=== PATIENT | male | born 1960 | race Caucasian/White ===

== ENCOUNTER 2018-11-15 08:37 | Inpatient (IN) | payer OTHER ==
[2018-11-15 09:52] VITALS: BMI 23.1
--- NOTE | 2018-11-15 10:30 | HP ---
COWS - Scale Resting Pulse: 0= [place] 80 or Below Sweatin= Chills/Flushing Restless Observation: 3= Extraneous Movement Pupil Size: 2= Moderately Dilated Bone or Joint Aches: 2= Severe Diffuse Aches Runny Nose/ Eye Tearin= Constantly Teary/Runny GI Upset > 30mins: 5=Frequent Vomit/Diarrhea Tremor Observation: 2= Slight Tremor Visible Yawning Observation: 2= >3x During Session Anxiety or Irritability: 2=Irritable/Anxious Goose Flesh Skin: 3=Piloerection COWS Score: 26 CIWA Score - Admission Criteria [facility] Guidelines: Admission for Medically Managed Detox: Requires at least one of the followin. CIWA greater than 12 2. Seizures within the past 24 hours 3. Delirium tremens within the past 24 hours 4. Hallucinations within the past 24 hours 5. Acute intervention needed for co occurring medical disorder 6. Acute intervention needed for co occurring psychiatric disorder 7. Severe withdrawal that cannot be handled at a lower level of care (continued vomiting, continued diarrhea, abnormal vital signs) requiring intravenous medication and/or fluids 8. Admission ROS [facility] - [facility] Chief Complaint: " I had a in the family so I relapsed." Allergies/Adverse Reactions: Allergies Allergy/AdvReac Type Severity Reaction Status Date / Time No Known Allergies Allergy Verified 11/15/18 09:45 History of Present Illness: 57 year old male with history of opioid dependence. He was abstinent from 2013 till 2016 when a in the family caused him to relapse. His girlfriend and he fell apart. Patient is now using 1 gm of heroin per day, last used this morning. Patient is also using 1 gm of cocaine per day, last used this morning. Patient denies seizures. He had a blackout from drug use 2 months ago. Patient smokes ciggarettes 1 PPD for 15 years. Patient denies use of other illicit drugs: marijuana, K2, metamphetamine, etc. Patient has no pending legal issues. Patient domiciled. He has family but not supportive. PMH: HCV PsychHx: Depression PsurgHx: Fracture left foot - Ebola screening Have you traveled outside of the country in the last 21 days: No Have you had contact with anyone from an Ebola affected area: No Patient History - Patient Medical History Hx Asthma: No Hx Chronic Obstructive Pulmonary Disease (COPD): No Hx Cardiac Disorders: No Hx Hypertension: No Hx Seizures: No Hx Diabetes: No Hx Gastrointestinal Disorders: No Hx Genitourinary Disorders: No Hx Sexually Transmitted Disorders: No Hx Renal Disease (ESRD): No Hx Human Immunodeficiency Virus (HIV): No Hx Hepatitis C: Yes Hx Depression: Yes - Patient Surgical History Past Surgical History: Yes Hx Orthopedic Surgery: Yes (FRACTURED LEFT FOOT BONES IN 2011) - PPD History Previous Implant?: Yes Documented Results: Negative w/proof Implanted On Prior R Admission?: Yes Date: 09/11/13 PPD to be Administered?: No - Reproductive History Patient is a Female of Child Bearing Age (11 -55 yrs old): No - Smoking Cessation Smoking history: Former smoker Have you smoked in the past 12 months: No Aproximately how many cigarettes per day: 20 If you are a former smoker, when did you quit?: 7 YRS, AGO Hx Chewing Tobacco Use: No Initiated information on smoking cessation: No - Substance & Tx. History Hx Alcohol Use: No Hx Substance Use: Yes Substance Use Type: Cocaine, Heroin Hx Substance Use Treatment: Yes (detox in 2013) - Substances abused Cocaine Substance route: Injection Frequency: Daily Amount used: 1 GRAM Age of first use: 18 Date of last use: 11/15/18 Heroin Substance route: Injection Frequency: Daily Amount used: 1 GRAM Age of first use: 18 Date of last use: 11/15/18 Family Disease History - Family Disease History Family Disease History: Heart Disease: Mother (multiple medical problems), Other : Father ( of alcoholism), Brother (4 brothers, one , unknown health), Sister (2 sisters, unknown health) Admission Physical Exam [facility] - Vital Signs Vital Signs: Vital Signs - 24 hr 11/15/18 09:49 Temperature 99.8 F H Pulse Rate 71 Respiratory 20 Rate Blood Pressure 143/78 - Physical General Appearance: Yes: Disheveled, Moderate Distress HEENTM: Yes: EOMI, Hearing grossly Normal, Normal ENT Inspection, Normocephalic , DIMAS, Pharynx Normal Respiratory: Yes: Chest Non-Tender, Lungs Clear, Normal Breath Sounds, No Respiratory Distress, No Accessory Muscle Use Neck: Yes: No masses,lesions,Nodules, Supple, Trachea in good position Breast: Yes: Within Normal Limits Cardiology: Yes: Regular Rhythm, Regular Rate, S1, S2 Abdominal: Yes: Non Tender, Flat, Soft, Increased Bowel Sounds Genitourinary: Yes: Dribblimg Back: Yes: Normal Inspection Musculoskeletal: Yes: full range of Motion, Gait Steady, Pelvis Stable Extremities: Yes: Normal Capillary Refill, Normal Inspection, Normal Range of Motion, Non-Tender, Other (callouses on both feet.) Neurological: Yes: mobile device engineer II-XII NML intact, Fully Oriented, Alert, Motor Strength 5/5 Integumentary: Yes: Normal Color, Warm Lymphatic: Yes: Within Normal Limits - Diagnostic (1) Depression Current Visit: Yes Status: Acute (2) Pre-ulcerative corn or callous Current Visit: Yes Status: Acute (3) Opiate dependence Current Visit: Yes Status: Chronic Qualifiers: Substance use status: in withdrawal Qualified Code(s): F11.23 - Opioid dependence with withdrawal Cleared for Admission S - Detox or Rehab [facility] Level of Care: Medically Managed Detox Regimen/Protocol: Methadone Screened but not Admitted - Documentation of Visit Screened but not Admitted: No Breathalyzer - Breathalyzer Breathalyzer: 0 Vital Signs - Vital Signs Vital signs refused: No Temperature: 99.8 F Temperature source: Oral Pulse Rate: 71 Respiratory Rate: 20 Blood Pressure: 143/78 BP Location: Left Arm Blood Pressure position: Sitting - Height Height: 6 ft 1 in - Weight Weight: 175 lb Weight measurement method: Standing scale - BMI Body Mass Index (BMI): 23.1 - Bowel Function Bowel Movement: Yes (diarrhea) Urine Drug Screen - Test Device Lot number: [id number] Expiration date: 08/18/20 - Control Is test valid?: Yes - Results Drug screen NEGATIVE: No Urine drug screen results: NICHOLE-Cocaine, MOP-Opiates Inpatient Rehab Admission - Rehab Decision to Admit Inpatient rehab admission?: No
[2018-11-15] MEDS ORDERED: MAG HYDROX/AL HYDROX/SIMETH 30 ML UNIT-DOSE CUP PO PRN (10:42)
[2018-11-15] MEDS ORDERED: MAGNESIUM CITRATE 300 ML BOTTLE PO PRN (10:42)
[2018-11-15] MEDS ORDERED: MENTHOL/PHENOL 1 EACH UD MM PRN (10:42)
[2018-11-15] MEDS ORDERED: IBUPROFEN 400 MG TABLET (FP) PO PRN (10:42)
[2018-11-15] MEDS ORDERED: MELATONIN 5 MG TABLETS PO PRN (10:42)
[2018-11-15] MEDS ORDERED: BISMUTH SUBSALICYLATE 262 MG/15 ML BTL PO PRN (10:42)
[2018-11-15] MEDS ORDERED: cloNIDine HCL 0.1 MG TABLET PO PRN (10:42)
[2018-11-15] MEDS ORDERED: MAGNESIUM HYDROX 2400MG/30ML ORAL SUSPENSION 30 ML CUP PO PRN (10:42)
[2018-11-15] MEDS ORDERED: METHADONE HCL 10 MG TABLET (FOR DETOX USE ONLY) PO ONE (11:40)
[2018-11-15] MEDS: NICOTINE 14 MG/24 HOURS TOPICAL PATCH TD SCH (12:00)
[2018-11-15 14:25] LABS: HEMATOCRIT 36.4 % (35.4-49); HEMOGLOBIN 12.3 GM/dL (11.7-16.9); MCH 31.6 pg (25.7-33.7); MCHC 33.7 g/dl (32.0-35.9); MEAN CELL VOLUME 93.9 fl (80-96); PLATELET COUNT 59 K/MM3 (134-434); RBC 3.88 M/mm3 (4.00-5.60); RDW 13.9 % (11.9-15.9); WHITE BLOOD COUNT 4.6 K/mm3 (4.0-10.0)
[2018-11-15 14:44] LABS: BILIRUBIN,TOTAL 1.2 mg/dL (0.2-1); BLOOD UREA NITROGEN 9.7 mg/dL (7-18); CALCIUM 8.5 mg/dL (8.5-10.1); POTASSIUM 4.1 mmol/L (3.5-5.1)
[2018-11-15] MEDS: ACETAMINOPHEN 325 MG TABLET (FP) PO PRN (16:50)
[2018-11-15] MEDS: METHOCARBAMOL 500 MG TABLET PO PRN (16:51)
[2018-11-15] MEDS: hydrOXYzine PAMOATE 25 MG CAPSULE (FP) PO PRN (16:53)
[2018-11-15] MEDS: THIAMINE HCL 100 MG TABLET (FP) PO SCH (22:19)
--- NOTE | 2018-11-15 23:04 | PN ---
BHS Progress Note (SOAP) Subjective: Called to see patient w/ elevated temp. Patient denies pain/cough. Objective: 11/15/18 23:03 Alert. Throat w/o lesions, discharge or erythema. No auricular tenderness. Lungs CTA. Abd S/NT/BS+. WBC -wnl Vital Signs - 24 hr 11/15/18 11/15/18 11/15/18 09:49 10:42 13:54 Temperature 99.8 F H 99.8 F H 98.6 F Pulse Rate 71 71 87 Respiratory 20 20 18 Rate Blood Pressure 143/78 143/78 149/58 L 11/15/18 11/15/18 18:04 22:00 Temperature 102.2 F H 99 F Pulse Rate 73 82 Respiratory 18 18 Rate Blood Pressure 119/60 111/58 L CBC WBC 4.6 K/mm3 (4.0-10.0) 11/15/18 11:05 RBC 3.88 M/mm3 (4.00-5.60) L 11/15/18 11:05 Hgb 12.3 GM/dL (11.7-16.9) 11/15/18 11:05 Hct 36.4 % (35.4-49) 11/15/18 11:05 MCV 93.9 fl (80-96) 11/15/18 11:05 MCH 31.6 pg (25.7-33.7) 11/15/18 11:05 MCHC 33.7 g/dl (32.0-35.9) 11/15/18 11:05 RDW 13.9 % (11.9-15.9) 11/15/18 11:05 Plt Count 59 K/MM3 (134-434) L D 11/15/18 11:05 MPV 9.0 fl (7.5-11.1) 11/15/18 11:05 Manual Slide Review 11/15/18 11:05 Platelet Comment No clumping noted 11/15/18 11:05 Assessment: Fever unknown origin. Opioid withdrawal. Plan: Antipyretics q4h for temp> 100. Temperature q4h Encouraged increased water intake.
[2018-11-16] MEDS ORDERED: METHADONE HCL 10 MG TABLET (FOR DETOX USE ONLY) ONE (09:07)
[2018-11-16] MEDS ORDERED: METHADONE HCL 5 MG TABLET (FOR DETOX USE ONLY) ONE (09:08)
[2018-11-16] MEDS ORDERED: METHADONE (DETOX) 20 MG, METHADONE (DETOX) 5 MG PO ONE (10:00)
[2018-11-16] MEDS: PRENATAL VITAMINS W/ FOLIC ACID TABLET (FP) PO SCH (10:15)
[2018-11-16] MEDS: NICOTINE 14 MG/24 HOURS TOPICAL PATCH TD SCH (10:16)
--- NOTE | 2018-11-16 10:46 | CONSULT ---
[facility] Consult - Data Date of interview: 11/16/18 Psychiatric History: Patient approached at bedside. He told grant writer:"I'm allright. I don't want to talk"
--- NOTE | 2018-11-16 14:33 | PN ---
BHS COWS - Scale Resting Pulse: 0= [place] 80 or Below Sweatin=Flushed/Facial Moisture Restless Observation: 1= Difficult to Sit Still Pupil Size: 0= Normal to Room Light Bone or Joint Aches: 2= Severe Diffuse Aches Runny Nose/ Eye Tearin= Runny Nose/Eyes GI Upset > 30mins: 1= Stomach Cramp Tremor Observation of Outstretched Hands: 2= Slight Tremor Visible Yawning Observation: 2= >3x During Session Anxiety or Irritability: 2=Irritable/Anxious Goose Flesh Skin: 0=Smooth Skin COWS Score: 14 BHS Progress Note (SOAP) Subjective: sweats shakes interrupted sleep body aches agitation restless Objective: 11/16/18 14:31 Vital Signs Temperature 97.5 F L 11/16/18 13:48 Pulse Rate 78 11/16/18 13:48 Respiratory Rate 18 11/16/18 13:48 Blood Pressure 113/69 11/16/18 13:48 O2 Sat by Pulse Oximetry (%) Laboratory Tests 11/15/18 11/15/18 11/15/18 11:00 11:05 11:05 WBC 4.6 RBC 3.88 L Hgb 12.3 Hct 36.4 MCV 93.9 MCH 31.6 MCHC 33.7 RDW 13.9 Plt Count 59 L D MPV 9.0 Manual Slide Review Platelet Comment No clumping noted Sodium 139 Potassium 4.1 Chloride 105 Carbon Dioxide 29 Anion Gap 5 L BUN 9.7 Creatinine 1.0 Est GFR (CKD-EPI)AfAm 97.08 Est GFR (CKD-EPI)NonAf 83.76 Random Glucose 83 Calcium 8.5 Total Bilirubin 1.2 H AST 40 H ALT 28 Alkaline Phosphatase 58 Total Protein 7.0 Albumin 3.0 L RPR Titer HIV 1&2 Ag/Ab, 4th Gen Non reactive HIV 1&2 Antibody Screen HIV P24 Antigen 11/15/18 11/15/18 11:05 11:05 WBC RBC Hgb Hct MCV MCH MCHC RDW Plt Count MPV Manual Slide Review Platelet Comment Sodium Potassium Chloride Carbon Dioxide Anion Gap BUN Creatinine Est GFR (CKD-EPI)AfAm Est GFR (CKD-EPI)NonAf Random Glucose Calcium Total Bilirubin AST ALT Alkaline Phosphatase Total Protein Albumin RPR Titer Nonreactive HIV 1&2 Ag/Ab, 4th Gen HIV 1&2 Antibody Screen Cancelled HIV P24 Antigen Cancelled labs noted aaox3 ambulating no acute distress Assessment: 11/16/18 14:33 withdrawal sx Plan: continue detox increase fluids valium 10mg prn
[2018-11-16] MEDS: METHOCARBAMOL 500 MG TABLET PO PRN (18:37)
[2018-11-16] MEDS: diazePAM 5 MG TABLET PO PRN ×2 (18:37→22:40)
[2018-11-16] MEDS: THIAMINE HCL 100 MG TABLET (FP) PO SCH (22:38)
[2018-11-16] MEDS: traZODone HCL 50 MG TABLET (FP) PO SCH (22:38)
[2018-11-16] MEDS: ACETAMINOPHEN 325 MG TABLET (FP) PO PRN (23:44)
[2018-11-17] MEDS ORDERED: METHADONE HCL 10 MG TABLET (FOR DETOX USE ONLY) PO ONE (10:00)
[2018-11-17] MEDS: PRENATAL VITAMINS W/ FOLIC ACID TABLET (FP) PO SCH (10:22)
[2018-11-17] MEDS: diazePAM 5 MG TABLET PO PRN ×2 (10:23→17:34)
[2018-11-17] MEDS: NICOTINE 14 MG/24 HOURS TOPICAL PATCH TD SCH (10:23)
[2018-11-17] MEDS: METHOCARBAMOL 500 MG TABLET PO PRN (10:23)
--- NOTE | 2018-11-17 13:46 | PN ---
BHS COWS - Scale Resting Pulse: 0= [place] 80 or Below Sweatin=Flushed/Facial Moisture Restless Observation: 1= Difficult to Sit Still Pupil Size: 0= Normal to Room Light Bone or Joint Aches: 2= Severe Diffuse Aches Runny Nose/ Eye Tearin= Nasal Congestion GI Upset > 30mins: 0= None Tremor Observation of Outstretched Hands: 2= Slight Tremor Visible Yawning Observation: 1= 1-2x During Session Anxiety or Irritability: 1=Feels Anxious/Irritable Goose Flesh Skin: 0=Smooth Skin COWS Score: 10 BHS Progress Note (SOAP) Subjective: sweats tired interrupted sleep body aches agitation Objective: 11/17/18 13:45 Vital Signs Temperature 97.1 F L 11/17/18 12:46 Pulse Rate 80 11/17/18 12:46 Respiratory Rate 18 11/17/18 12:46 Blood Pressure 103/64 11/17/18 12:46 O2 Sat by Pulse Oximetry (%) Laboratory Tests 11/15/18 11/15/18 11/15/18 11:00 11:05 11:05 WBC 4.6 RBC 3.88 L Hgb 12.3 Hct 36.4 MCV 93.9 MCH 31.6 MCHC 33.7 RDW 13.9 Plt Count 59 L D MPV 9.0 Manual Slide Review Platelet Comment No clumping noted Sodium 139 Potassium 4.1 Chloride 105 Carbon Dioxide 29 Anion Gap 5 L BUN 9.7 Creatinine 1.0 Est GFR (CKD-EPI)AfAm 97.08 Est GFR (CKD-EPI)NonAf 83.76 Random Glucose 83 Calcium 8.5 Total Bilirubin 1.2 H AST 40 H ALT 28 Alkaline Phosphatase 58 Total Protein 7.0 Albumin 3.0 L RPR Titer HIV 1&2 Ag/Ab, 4th Gen Non reactive HIV 1&2 Antibody Screen HIV P24 Antigen 11/15/18 11/15/18 11:05 11:05 WBC RBC Hgb Hct MCV MCH MCHC RDW Plt Count MPV Manual Slide Review Platelet Comment Sodium Potassium Chloride Carbon Dioxide Anion Gap BUN Creatinine Est GFR (CKD-EPI)AfAm Est GFR (CKD-EPI)NonAf Random Glucose Calcium Total Bilirubin AST ALT Alkaline Phosphatase Total Protein Albumin RPR Titer Nonreactive HIV 1&2 Ag/Ab, 4th Gen HIV 1&2 Antibody Screen Cancelled HIV P24 Antigen Cancelled labs noted aaox3 ambulating no acute distress Assessment: 11/17/18 13:45 withdrawal sx Plan: continue detox increase fluids
[2018-11-17] MEDS: ACETAMINOPHEN 325 MG TABLET (FP) PO PRN (20:23)
[2018-11-17] MEDS: THIAMINE HCL 100 MG TABLET (FP) PO SCH (22:29)
[2018-11-17] MEDS: traZODone HCL 50 MG TABLET (FP) PO SCH (22:29)
[2018-11-18] MEDS ORDERED: METHADONE HCL 5 MG TABLET (FOR DETOX USE ONLY) ONE (09:41)
[2018-11-18] MEDS ORDERED: METHADONE HCL 10 MG TABLET (FOR DETOX USE ONLY) ONE (09:41)
[2018-11-18] MEDS ORDERED: METHADONE (DETOX) 10 MG, METHADONE (DETOX) 5 MG PO ONE (10:00)
[2018-11-18] MEDS: PRENATAL VITAMINS W/ FOLIC ACID TABLET (FP) PO SCH (10:23)
[2018-11-18] MEDS: NICOTINE 14 MG/24 HOURS TOPICAL PATCH TD SCH (10:23)
[2018-11-18] MEDS: diazePAM 5 MG TABLET PO PRN ×2 (10:25→17:12)
[2018-11-18] MEDS: METHOCARBAMOL 500 MG TABLET PO PRN ×2 (10:25→17:12)
--- NOTE | 2018-11-18 11:26 | PN ---
BHS COWS - Scale Resting Pulse: 1= [place] 81-100 Sweatin= Beads of Sweat on Face Restless Observation: 1= Difficult to Sit Still Pupil Size: 0= Normal to Room Light Bone or Joint Aches: 1= Mild Discomfort Runny Nose/ Eye Tearin= None GI Upset > 30mins: 0= None Tremor Observation of Outstretched Hands: 0= None Yawning Observation: 1= 1-2x During Session Anxiety or Irritability: 1=Feels Anxious/Irritable Goose Flesh Skin: 0=Smooth Skin COWS Score: 8 S Progress Note (SOAP) Subjective: c/o anxiety, sweats, and muscle aches. Objective: 11/18/18 11:26 Vital Signs 11/18/18 11/18/18 11/18/18 03:30 07:18 09:53 Temperature 98.6 F 98.1 F Pulse Rate 89 93 H Respiratory 18 18 18 Rate Blood Pressure 103/56 L 109/68 Lab Results WBC 4.6 K/mm3 (4.0-10.0) 11/15/18 11:05 RBC 3.88 M/mm3 (4.00-5.60) L 11/15/18 11:05 Hgb 12.3 GM/dL (11.7-16.9) 11/15/18 11:05 Hct 36.4 % (35.4-49) 11/15/18 11:05 MCV 93.9 fl (80-96) 11/15/18 11:05 MCHC 33.7 g/dl (32.0-35.9) 11/15/18 11:05 RDW 13.9 % (11.9-15.9) 11/15/18 11:05 Plt Count 59 K/MM3 (134-434) L D 11/15/18 11:05 Sodium 139 mmol/L (136-145) 11/15/18 11:05 Potassium 4.1 mmol/L (3.5-5.1) 11/15/18 11:05 Chloride 105 mmol/L (98-107) 11/15/18 11:05 Carbon Dioxide 29 mmol/L (21-32) 11/15/18 11:05 Anion Gap 5 MMOL/L (8-16) L 11/15/18 11:05 BUN 9.7 mg/dL (7-18) 11/15/18 11:05 Creatinine 1.0 mg/dL (0.55-1.3) 11/15/18 11:05 Random Glucose 83 mg/dL (74-106) 11/15/18 11:05 Calcium 8.5 mg/dL (8.5-10.1) 11/15/18 11:05 Labs noted. Assessment: 11/18/18 11:26 AOX3, in no acute respiratory distress. Full ROM, ambulating in the unit. withdrawal symptoms. Plan: continue detox.
[2018-11-18] MEDS: traZODone HCL 50 MG TABLET (FP) PO SCH (22:27)
[2018-11-18] MEDS: THIAMINE HCL 100 MG TABLET (FP) PO SCH (22:27)
[2018-11-18] MEDS: hydrOXYzine PAMOATE 25 MG CAPSULE (FP) PO PRN (22:29)
[2018-11-18] MEDS: ACETAMINOPHEN 325 MG TABLET (FP) PO PRN (22:55)
[2018-11-19] MEDS ORDERED: METHADONE HCL 10 MG TABLET (FOR DETOX USE ONLY) PO ONE (10:00)
[2018-11-19] MEDS: PRENATAL VITAMINS W/ FOLIC ACID TABLET (FP) PO SCH (10:45)
[2018-11-19] MEDS: NICOTINE 14 MG/24 HOURS TOPICAL PATCH TD SCH (10:45)
[2018-11-19] MEDS: ACETAMINOPHEN 325 MG TABLET (FP) PO PRN (10:48)
--- NOTE | 2018-11-19 16:49 | PN ---
BHS COWS - Scale Resting Pulse: 1= [place] 81-100 Sweatin= Chills/Flushing Restless Observation: 1= Difficult to Sit Still Pupil Size: 0= Normal to Room Light Bone or Joint Aches: 2= Severe Diffuse Aches Runny Nose/ Eye Tearin= None GI Upset > 30mins: 0= None Tremor Observation of Outstretched Hands: 0= None Yawning Observation: 0= None Anxiety or Irritability: 1=Feels Anxious/Irritable Goose Flesh Skin: 0=Smooth Skin COWS Score: 6 BHS Progress Note (SOAP) Subjective: Feels ok, medication working Objective: 11/19/18 16:47 Last Vital Signs Temp Pulse Resp BP Pulse Ox 98.1 F 85 18 119/61 11/19/18 13:54 11/19/18 13:54 11/19/18 13:54 11/19/18 13:54 Laboratory Tests 11/15/18 11/15/18 11/15/18 11:00 11:05 11:05 WBC 4.6 RBC 3.88 L Hgb 12.3 Hct 36.4 MCV 93.9 MCH 31.6 MCHC 33.7 RDW 13.9 Plt Count 59 L D MPV 9.0 Manual Slide Review Platelet Comment No clumping noted Sodium 139 Potassium 4.1 Chloride 105 Carbon Dioxide 29 Anion Gap 5 L BUN 9.7 Creatinine 1.0 Est GFR (CKD-EPI)AfAm 97.08 Est GFR (CKD-EPI)NonAf 83.76 Random Glucose 83 Calcium 8.5 Total Bilirubin 1.2 H AST 40 H ALT 28 Alkaline Phosphatase 58 Total Protein 7.0 Albumin 3.0 L RPR Titer HIV 1&2 Ag/Ab, 4th Gen Non reactive HIV 1&2 Antibody Screen HIV P24 Antigen TB (QFT) Incubation TB Test (QFT) Nil TB Test (QFT) Mitogen TB Test (QFT) Antigen TB Test (QFT) TB Positive Criteria 11/15/18 11/15/18 11/15/18 11:05 11:05 11:05 WBC RBC Hgb Hct MCV MCH MCHC RDW Plt Count MPV Manual Slide Review Platelet Comment Sodium Potassium Chloride Carbon Dioxide Anion Gap BUN Creatinine Est GFR (CKD-EPI)AfAm Est GFR (CKD-EPI)NonAf Random Glucose Calcium Total Bilirubin AST ALT Alkaline Phosphatase Total Protein Albumin RPR Titer Nonreactive HIV 1&2 Ag/Ab, 4th Gen HIV 1&2 Antibody Screen Cancelled HIV P24 Antigen Cancelled TB (QFT) Incubation TB Test (QFT) Nil 0.18 TB Test (QFT) Mitogen 0.89 TB Test (QFT) Antigen 0.17 TB Test (QFT) Negative TB Positive Criteria Labs reviewed: plt 59 Assessment: 11/19/18 16:47 Withdrawal sxs Noted with thrombocytopenia Plan: Continue detox Encouraged PO water intake Patient scheduled for discharge tomorrow Thrombocytopenia: has history of thrombocytopenia since 2013; monitor for bleeding/bruising, follow up with PCP for monitoring.
--- NOTE | 2018-11-19 20:28 | PN ---
S Progress Note Note: Called to see patient w/ T= 102.2 Patient c/o feeling hot, w/ chills. Denies nausea, vomiting, diarrhea. Patient informs this provider no BM x 4 days. Denies bleeding/bruising. Hx: Patient is a 57 yo being detoxed, with methadone, for opiate use disorder. Thrombocytopenia. Intermittent fevers since 11/15/09 (102.2 F) w/o other complaints and rx'd w/ acetaminophen. Vital Signs (72 hours) 11/16/18 11/16/18 11/17/18 21:29 23:51 00:30 Temperature 100.4 F H 99.2 F Pulse Rate 97 H Respiratory 18 18 Rate Blood Pressure 144/73 11/17/18 11/17/18 11/17/18 03:30 06:00 09:46 Temperature 98.1 F 98.8 F Pulse Rate 64 80 Respiratory 18 18 18 Rate Blood Pressure 110/60 93/63 11/17/18 11/17/18 11/17/18 12:46 17:01 19:45 Temperature 97.1 F L 101.7 F H 99 F Pulse Rate 80 88 Respiratory 18 18 Rate Blood Pressure 103/64 100/57 L 11/17/18 11/17/18 11/18/18 21:50 22:25 00:24 Temperature 101.6 F H 100 F H Pulse Rate 97 H Respiratory 18 Rate Blood Pressure 111/70 11/18/18 11/18/18 11/18/18 00:30 03:30 07:18 Temperature 98.6 F Pulse Rate 89 Respiratory 18 18 18 Rate Blood Pressure 103/56 L 11/18/18 11/18/18 11/18/18 09:53 13:39 17:45 Temperature 98.1 F 98.1 F 99.7 F H Pulse Rate 93 H 77 80 Respiratory 18 17 18 Rate Blood Pressure 109/68 111/61 113/68 11/18/18 11/18/18 11/19/18 21:21 23:52 00:30 Temperature 100.8 F H 100.0 F H Pulse Rate 88 Respiratory 16 18 Rate Blood Pressure 115/58 L 11/19/18 11/19/18 11/19/18 03:30 07:39 09:30 Temperature 97.7 F 98.2 F Pulse Rate 68 75 Respiratory 18 18 16 Rate Blood Pressure 102/61 117/77 0901/19 09/01/19 09/01/19 13:54 17:18 20:48 Temperature 98.1 F 96.3 F L 102.2 F H Pulse Rate 85 86 69 Respiratory 18 18 16 Rate Blood Pressure 119/61 109/60 132/66 Throat w/o lesions or exudate. Lungs CTA. No calf pain. No edema. Abd soft w/ slight distention. RLQ tenderness upon palpation. No rebound, no guarding. CBCD WBC 4.6 K/mm3 (4.0-10.0) 11/15/18 11:05 RBC 3.88 M/mm3 (4.00-5.60) L 11/15/18 11:05 Hgb 12.3 GM/dL (11.7-16.9) 11/15/18 11:05 Hct 36.4 % (35.4-49) 11/15/18 11:05 MCV 93.9 fl (80-96) 11/15/18 11:05 MCHC 33.7 g/dl (32.0-35.9) 11/15/18 11:05 RDW 13.9 % (11.9-15.9) 11/15/18 11:05 Plt Count 59 K/MM3 (134-434) L D 11/15/18 11:05 MPV 9.0 fl (7.5-11.1) 11/15/18 11:05 CMP Sodium 139 mmol/L (136-145) 11/15/18 11:05 Potassium 4.1 mmol/L (3.5-5.1) 11/15/18 11:05 Chloride 105 mmol/L (98-107) 11/15/18 11:05 Carbon Dioxide 29 mmol/L (21-32) 11/15/18 11:05 Anion Gap 5 MMOL/L (8-16) L 11/15/18 11:05 BUN 9.7 mg/dL (7-18) 11/15/18 11:05 Creatinine 1.0 mg/dL (0.55-1.3) 11/15/18 11:05 Calcium 8.5 mg/dL (8.5-10.1) 11/15/18 11:05 Total Bilirubin 1.2 mg/dL (0.2-1) H 11/15/18 11:05 AST 40 U/L (15-37) H 11/15/18 11:05 ALT 28 U/L (13-61) 11/15/18 11:05 Alkaline Phosphatase 58 U/L (45-117) 11/15/18 11:05 Total Protein 7.0 g/dl (6.4-8.2) 11/15/18 11:05 Albumin 3.0 g/dl (3.4-5.0) L 11/15/18 11:05 Plan: Tylenol 650 mg PO for temp (received) Refer to [facility] ED for evaluation via ambulance. Report given to Dr. Stephen.
[2018-11-19 20:49] VITALS: BP 132/66; PULSE 69; TEMP 102.2
[2018-11-19] MEDS: THIAMINE HCL 100 MG TABLET (FP) PO SCH (22:47)
[2018-11-19] MEDS: traZODone HCL 50 MG TABLET (FP) PO SCH (22:47)
[2018-11-20] MEDS ORDERED: METHADONE HCL 5 MG TABLET (FOR DETOX USE ONLY) PO ONE (06:00)
--- NOTE | 2018-11-20 10:02 | DS ---
[facility] Detox Discharge Summary Admission Date: 11/15/18 Discharge Date: 11/20/18 - History Present History: Opioid Dependence - Physical Exam Results Vital Signs: Vital Signs Temperature 102.2 F H 11/19/18 20:48 Pulse Rate 69 11/19/18 20:48 Respiratory Rate 16 11/19/18 20:48 Blood Pressure 132/66 11/19/18 20:48 O2 Sat by Pulse Oximetry (%) Pertinent Admission Physical Exam Findings: pt arrived in withdrawals Laboratory Tests 11/15/18 11/15/18 11/15/18 11:00 11:05 11:05 WBC 4.6 RBC 3.88 L Hgb 12.3 Hct 36.4 MCV 93.9 MCH 31.6 MCHC 33.7 RDW 13.9 Plt Count 59 L D MPV 9.0 Manual Slide Review Platelet Comment No clumping noted Sodium 139 Potassium 4.1 Chloride 105 Carbon Dioxide 29 Anion Gap 5 L BUN 9.7 Creatinine 1.0 Est GFR (CKD-EPI)AfAm 97.08 Est GFR (CKD-EPI)NonAf 83.76 Random Glucose 83 Calcium 8.5 Total Bilirubin 1.2 H AST 40 H ALT 28 Alkaline Phosphatase 58 Total Protein 7.0 Albumin 3.0 L RPR Titer HIV 1&2 Ag/Ab, 4th Gen Non reactive HIV 1&2 Antibody Screen HIV P24 Antigen TB (QFT) Incubation TB Test (QFT) Nil TB Test (QFT) Mitogen TB Test (QFT) Antigen TB Test (QFT) TB Positive Criteria 11/15/18 11/15/18 11/15/18 11:05 11:05 11:05 WBC RBC Hgb Hct MCV MCH MCHC RDW Plt Count MPV Manual Slide Review Platelet Comment Sodium Potassium Chloride Carbon Dioxide Anion Gap BUN Creatinine Est GFR (CKD-EPI)AfAm Est GFR (CKD-EPI)NonAf Random Glucose Calcium Total Bilirubin AST ALT Alkaline Phosphatase Total Protein Albumin RPR Titer Nonreactive HIV 1&2 Ag/Ab, 4th Gen HIV 1&2 Antibody Screen Cancelled HIV P24 Antigen Cancelled TB (QFT) Incubation TB Test (QFT) Nil 0.18 TB Test (QFT) Mitogen 0.89 TB Test (QFT) Antigen 0.17 TB Test (QFT) Negative TB Positive Criteria today pt is aaox3 ambulating no acute distress no s/s of withdrawals - Treatment Hospital Course: Detox Protocol Followed, Detoxed Safely, Responded well, Discharged Condition Good, Rehab Referral Accepted Patient has Accepted a Rehab Referral to: pt sent to [place] [facility] for evaluation - Medication Discharge Medications: Ambulatory Orders Acetaminophen [Tylenol] 650 mg PO QID PRN 11/20/18 Bismuth Subsalicylate [Pepto-Bismol -] 524 mg PO PRN PRN 11/20/18 Diazepam [Valium] 10 mg PO QID PRN 11/20/18 Mag Hydrox/Al Hydrox/Simeth [Mylanta *Suspension*] 30 ml PO Q6H 11/20/18 Magnesium Citrate [Citroma -] 150 ml PO Q2D 11/20/18 Magnesium Hydrox 2400MG/30Ml [Milk of Magnesia -] 30 ml PO DAILY PRN 11/20/18 Melatonin 5 mg PO HS 11/20/18 Menthol/Phenol [Cepastat Lozenge -] 1 each MM Q4H 11/20/18 Methadone [Dolophine -] 5 mg PO AM 11/20/18 Methocarbamol [Robaxin -] 500 mg PO QID 11/20/18 Nicotine Patch [Nicoderm Patch -] 1 patch TD DAILY 11/20/18 Thiamine Mononitrate [Vitamin B-1] 100 mg PO HS 11/20/18 hydrOXYzine PAMOATE [Vistaril -] 25 mg PO QID 11/20/18 traZODone HCL [Desyrel -] 50 mg PO HS 11/20/18 - Diagnosis (1) Constipation Status: Acute Qualifiers: Constipation type: unspecified constipation type Qualified Code(s): K59.00 - Constipation, unspecified (2) Fever and chills Status: Acute (3) Depression Status: Acute (4) Drug-induced mood disorder Status: Acute (5) Pre-ulcerative corn or callous Status: Acute (6) Opiate dependence Status: Chronic Qualifiers: Substance use status: uncomplicated Qualified Code(s): F11.20 - Opioid dependence, uncomplicated - AMA Did Patient Leave Against Medical Advice: No (sent to ED)
== END 2018-11-19 11:59 | disposition short-term general hospital (02) | DRG 773 ==
LOC: YASAS 08:37 → Y6N 11:25
PROVIDERS: ADMIT Surgery; ATTEND Surgery
PROC: HZ2ZZZZ Detoxification Services for Substance Abuse Treatment (ICD-10-PCS; principal; 2018-11-15)
DX: F11.23 Opioid dependence with withdrawal (principal); F14.20 Cocaine dependence, uncomplicated; F19.24 Other psychoactive substance dependence with psychoactive substance-induced mood disorder; F32.9 Major depressive disorder, single episode, unspecified; D69.6 Thrombocytopenia, unspecified; K59.00 Constipation, unspecified; R50.9 Fever, unspecified; L84 Corns and callosities; Z86.19 Personal history of other infectious and parasitic diseases
CPT/HCPCS: 36415; 80053; 85027; 86480; 86593; 87389

== ENCOUNTER 2018-11-19 22:06 | Inpatient (IN) | payer OTHER ==
[2018-11-19] MEDS ORDERED: IBUPROFEN 600 MG TABLET (FP) PO ONE (23:43)
[2018-11-20] MEDS ORDERED: IBUPROFEN 600 MG TABLET (FP) PO ONE (00:13)
--- NOTE | 2018-11-20 00:37 | PDOC ---
History of Present Illness - General Chief Complaint: Substance Abuse Stated Complaint: DRUG USE Time Seen by Provider: 11/19/18 22:43 History Source: Patient, EMS, Care Home Records Exam Limitations: No Limitations - History of Present Illness Initial Comments: 11/20/18 00:31 Sebastian Stanford is a 57M at [facility] with PMH thrombocytopenia, for detox from opiates and cocaine presenting with 4 days fever/chills, constipation, and R-sided abd pain. Patient says he has been taking large amounts of opiates and cocaine because his family will give him drugs for free. OD on Fentanyl and hospitalized, now wants to be away from his family and wants detox and rehab. Day 5 [facility] detox, getting methadone, scheduled for admission to 2 weeks rehab. Reports 4 days fever and nighttime chills, as well as R-sided abdominal pain, urinary retention, constipation, poor appetite, headache. Denies nausea, vomiting, dizziness, weakness. Past History - Past Medical History Allergies/Adverse Reactions: Allergies Allergy/AdvReac Type Severity Reaction Status Date / Time No Known Allergies Allergy Verified 11/15/18 09:45 Asthma: No Cardiac Disorders: No COPD: No Diabetes: No GI Disorders: No Disorders: No HTN: No Kidney Stones: No Seizures: No - Surgical History Abdominal Surgery: No Appendectomy: No Cardiac Surgery: No Cholecystectomy: No Lung Surgery: No Neurologic Surgery: No Orthopedic Surgery: Yes (FRACTURED LEFT FOOT BONES IN 2011) - Reproductive History Testicular Surgery: No - Suicide/Smoking/Psychosocial Hx Smoking History: Current every day smoker Have you smoked in the past 12 months: Yes Number of Cigarettes Smoked Daily: 10 If you are a former smoker, when did you quit?: 7 YRS, AGO Information on smoking cessation initiated: Yes 'Breaking Loose' booklet given: 09/08/13 Hx Alcohol Use: No Drug/Substance Use Hx: Yes (COCAINE,HEROINE) Substance Use Type: Cocaine, Heroin Hx Substance Use Treatment: No Review of Systems - Review of Systems Constitutional: Yes: Chills, Fever, Loss of Appetite, Night Sweats HEENTM: No: Symptoms Reported Respiratory: No: Symptoms reported Cardiac (ROS): No: Symptoms Reported ABD/GI: Yes: Constipated, Nausea. No: Diarrhea, Vomiting : Yes: Other (DIFFICULTY URINATING, FEELS LIKE CONSTIPATION IN BLADDER). No: Burning, Dysuria, Discharge, Frequency, Flank Pain, Hematuria Musculoskeletal: No: Symptoms Reported Integumentary: No: Symptoms Reported Neurological: Yes: Headache. No: Numbness, Paresthesia, Tingling, Tremors, Unsteady Gait, Ataxia Endocrine: No: Symptoms Reported Hematologic/Lymphatic: No: Symptoms Reported All Other Systems: Reviewed and Negative *Physical Exam - Vital Signs Last Vital Signs Temp Pulse Resp BP Pulse Ox 101.2 F H 91 H 20 97/47 L 98 11/19/18 22:23 11/19/18 22:23 11/19/18 22:23 11/19/18 22:23 11/19/18 22:23 - Physical Exam General Appearance: Yes: Nourished, Appropriately Dressed, Disheveled, Mild Distress HEENT: positive: EOMI, DIMAS, Normal Voice, Symmetrical. negative: Scleral Icterus (R), Scleral Icterus (L), Pharyngeal Erythema, Tonsillar Exudate, Tonsillar Erythema, Rhinorrhea Neck: positive: Trachea midline, Normal Thyroid, Supple. negative: Tender, Lymphadenopathy (R), Lymphadenopathy (L) Respiratory/Chest: positive: Lungs Clear, Normal Breath Sounds. negative: Respiratory Distress, Crackles, Rales, Rhonchi Cardiovascular: positive: Regular Rhythm, Regular Rate. negative: Edema, Murmur Gastrointestinal/Abdominal: positive: Normal Bowel Sounds, Tender (R SIDE TENDERNESS, NEGATIVE HDEZ SIGN), Flat, Soft. negative: Organomegaly, Distended, Guarding, Rebound Musculoskeletal: positive: Normal Inspection. negative: CVA Tenderness Extremity: positive: Normal Capillary Refill, Normal Inspection, Normal Range of Motion. negative: Tender Integumentary: positive: Dry, Warm, Pale. negative: Erythema, Jaundice, Hives, Bruising Neurologic: positive: Fully Oriented, Alert, Normal Mood/Affect, Normal Response. negative: Motor Strength 07/23 ED Treatment Course - LABORATORY CBC & Chemistry Diagram: 11/19/18 00:20 11/19/18 00:20 - Medications Given in the ED: ED Medications Discontinued Medications Generic Name Dose Route Start Last Admin Trade Name Freq PRN Reason Stop Dose Admin Ibuprofen 600 mg 11/19/18 23:43 11/20/18 00:15 Motrin - PO 11/19/18 23:44 600 mg ONCE ONE Administration Medical Decision Making - Medical Decision Making 11/20/18 00:37 Sebastian Stanford is a 57M at [facility] with PMH thrombocytopenia, for detox from opiates and cocaine presenting with 4 days fever/chills, constipation, and R-sided abd pain. Patient is febrile here and has symptoms concerning for an infectious etiology rather than just withdrawal, will work up for presumed infection via: CMP CBC CP ECG CXR BC UA/UC lipase Rapid Strep Also concerned about TB given nighttime chills. 11/20/18 01:[address] Morrow <3 Ordered lactate and fluids off of sepsis order set. *DC/Admit/Observation/Transfer Diagnosis at time of Disposition: Fever and chills Constipation Qualifiers: Constipation type: unspecified constipation type Qualified Code(s): K59.00 - Constipation, unspecified - Referrals - Patient Instructions - Post Discharge Activity
[2018-11-20] MEDS ORDERED: SODIUM CHLORIDE 2,381 ML IV ONE (01:05)
[2018-11-20 01:10] LABS: BASO % 0.1 % (0-2.0); EOS % 0.4 % (0-4.5); HEMATOCRIT 34.1 % (35.4-49); HEMOGLOBIN 11.4 GM/dL (11.7-16.9); LYMPH % 11.5 % (8-40); MCH 31.3 pg (25.7-33.7); MCHC 33.5 g/dl (32.0-35.9); MEAN CELL VOLUME 93.3 fl (80-96); MEAN PLT VOLUME 8.8 fl (7.5-11.1); MONO % 11.4 % (3.8-10.2); NEUT % 76.6 % (42.8-82.8); PLATELET COUNT 72 K/MM3 (134-434); RBC 3.65 M/mm3 (4.00-5.60); RDW 13.6 % (11.9-15.9); WHITE BLOOD COUNT 5.3 K/mm3 (4.0-10.0)
[2018-11-20 01:16] LABS: EPI CELLS 0.1 /HPF (0-5/HPF); HYALINE CASTS 45 /lpf (0-8); PH,URINE >= 9.0 (5.0-8.0); URINE APPEARANCE CLEAR; URINE BILIRUBIN NEGATIVE (NEGATIVE); URINE COLOR DK YELLOW; URINE GLUCOSE (UA) NEGATIVE (NEGATIVE); URINE KETONE NEGATIVE (NEGATIVE); URINE LEUK ESTERASE 2+ (NEGATIVE); URINE NITRITE NEGATIVE (NEGATIVE); URINE PROTEIN TRACE (NEGATIVE); URINE RBC 20 /hpf (0-4); URINE WBC 51 /hpf (0-5)
[2018-11-20 01:30] LABS: URINE BACTERIA NONE SEEN /hpf (NEGATIVE)
[2018-11-20] MEDS ORDERED: CEFTRIAXONE 1 GM in DEXTROSE 5%-WATER - 50 ML IVPB ONE (01:32)
[2018-11-20] MEDS ORDERED: diazePAM 5 MG TABLET PO ONE (01:32)
[2018-11-20] MEDS ORDERED: diazePAM 5 MG TABLET ONE (01:34)
[2018-11-20] MEDS ORDERED: CEFTRIAXONE 1 GM/50 ML BAG ONE (01:34)
[2018-11-20 01:43] LABS: ALBUMIN 2.3 g/dl (3.4-5.0); BILIRUBIN,TOTAL 0.6 mg/dL (0.2-1); BLOOD UREA NITROGEN 13.2 mg/dL (7-18); CALCIUM 7.7 mg/dL (8.5-10.1); CREATININE 0.9 mg/dL (0.55-1.3); POTASSIUM 4.6 mmol/L (3.5-5.1)
[2018-11-20 01:46] LABS: LIPASE 81 U/L (73-393)
--- NOTE | 2018-11-20 01:47 | PDOC ---
*Physical Exam - Vital Signs Last Vital Signs Temp Pulse Resp BP Pulse Ox 101.2 F H 91 H 20 97/47 L 98 11/19/18 22:23 11/19/18 22:23 11/19/18 22:23 11/19/18 22:23 11/19/18 22:23 <Evelin Stephen - Last Filed: 11/20/18 02:04> - Vital Signs Last Vital Signs Temp Pulse Resp BP Pulse Ox 101.2 F H 91 H 20 97/47 L 98 11/19/18 22:23 11/19/18 22:23 11/19/18 22:23 11/19/18 22:23 11/19/18 22:23 - Physical Exam Comments: 11/20/18 02:37 Gen: Alert, NAD, comfortable-appearing, sleeping HEENT: PERRL, EOMI, MMM, NCAT. No conjunctival pallor. Sclera are non-icteric. CV: Regular rate and rhythm. No murmurs, rubs, or gallops. PULM: No resp distress. CTAB, no wheezes, rales, or rhonchi. ABD: soft, NT/ND, no rebound tenderness or guarding, no CVA tenderness. BACK: No TTP of c/t/l-spine. No step-offs or deformities. MSK: No bony deformities. 2+ pulses in all extremities. NEURO: AAOx3. PERRL. No gross CN deficits. Strength and sensation grossly intact throughout. EXTREMITIES: No cyanosis. No clubbing. No edema. No calf tenderness. PSYCH: Normal mood and thought pattern. SKIN: Warm and dry. Normal capillary refill. No rashes. No jaundice. <Lanny Morrow - Last Filed: 11/20/18 02:39> ED Treatment Course - LABORATORY CBC & Chemistry Diagram: 11/19/18 00:20 11/19/18 00:20 - ADDITIONAL ORDERS Additional order review: Laboratory Results 11/20/18 11/19/18 11/19/18 00:30 00:20 00:20 Sodium 136 Potassium 4.6 Chloride 102 Carbon Dioxide 29 Anion Gap 5 L BUN 13.2 Creatinine 0.9 Est GFR (CKD-EPI)AfAm 110.27 Est GFR (CKD-EPI)NonAf 95.14 Random Glucose 128 H Calcium 7.7 L Total Bilirubin 0.6 AST 33 ALT 25 Alkaline Phosphatase 70 Creatine Kinase 32 Troponin I < 0.02 Total Protein 6.0 L Albumin 2.3 L Lipase 81 Urine Color Dk yellow Urine Appearance Clear Urine pH >= 9.0 H D Ur Specific Coy 1.022 Urine Protein Trace Urine Glucose (UA) Negative Urine Ketones Negative Urine Blood 1+ H Urine Nitrite Negative Urine Bilirubin Negative Urine Urobilinogen 2.0 Ur Leukocyte Esterase 2+ H Urine WBC (Auto) 51 Urine RBC (Auto) 20 Urine Casts (Auto) 45 U Epithel Cells (Auto) 0.1 Urine Bacteria (Auto) None seen 11/19/18 00:20 Sodium Potassium Chloride Carbon Dioxide Anion Gap BUN Creatinine Est GFR (CKD-EPI)AfAm Est GFR (CKD-EPI)NonAf Random Glucose Calcium Total Bilirubin AST ALT Alkaline Phosphatase Creatine Kinase Cancelled Troponin I Cancelled Total Protein Albumin Lipase Urine Color Urine Appearance Urine pH Ur Specific Coy Urine Protein Urine Glucose (UA) Urine Ketones Urine Blood Urine Nitrite Urine Bilirubin Urine Urobilinogen Ur Leukocyte Esterase Urine WBC (Auto) Urine RBC (Auto) Urine Casts (Auto) U Epithel Cells (Auto) Urine Bacteria (Auto) 11/19/18 00:20 RBC 3.65 L MCV 93.3 MCHC 33.5 RDW 13.6 MPV 8.8 Neutrophils % 76.6 Lymphocytes % 11.5 Monocytes % 11.4 H Eosinophils % 0.4 Basophils % 0.1 - RADIOLOGY Radiology Studies Ordered: Category Date Time Status CHEST PA & LAT [RAD] Stat Radiology 11/20/18 00:06 Taken - Medications Given in the ED: ED Medications Discontinued Medications Generic Name Dose Route Start Last Admin Trade Name Nara PRN Reason Stop Dose Admin Diazepam 5 mg 11/20/18 01:32 11/20/18 01:40 Valium - PO 11/20/18 01:33 5 mg ONCE ONE Administration Ceftriaxone Sodium 1 gm/ 50 mls @ 100 mls/hr 11/20/18 01:32 11/20/18 01:40 Dextrose IVPB 11/20/18 02:01 100 mls/hr ONCE ONE Administration Ibuprofen 600 mg 11/19/18 23:43 11/20/18 00:15 Motrin - PO 11/19/18 23:44 600 mg ONCE ONE Administration <Evelin Stephen - Last Filed: 11/20/18 02:04> - LABORATORY CBC & Chemistry Diagram: 11/19/18 00:20 11/19/18 00:20 - ADDITIONAL ORDERS Additional order review: Laboratory Results 11/20/18 11/19/18 11/19/18 00:30 00:20 00:20 Sodium 136 Potassium 4.6 Chloride 102 Carbon Dioxide 29 Anion Gap 5 L BUN 13.2 Creatinine 0.9 Est GFR (CKD-EPI)AfAm 110.27 Est GFR (CKD-EPI)NonAf 95.14 Random Glucose 128 H Calcium 7.7 L Total Bilirubin 0.6 AST 33 ALT 25 Alkaline Phosphatase 70 Creatine Kinase Cancelled Troponin I Cancelled Total Protein 6.0 L Albumin 2.3 L Urine Color Dk yellow Urine Appearance Clear Urine pH >= 9.0 H D Ur Specific Coy 1.022 Urine Protein Trace Urine Glucose (UA) Negative Urine Ketones Negative Urine Blood 1+ H Urine Nitrite Negative Urine Bilirubin Negative Urine Urobilinogen 2.0 Ur Leukocyte Esterase 2+ H Urine WBC (Auto) 51 Urine RBC (Auto) 20 Urine Casts (Auto) 45 U Epithel Cells (Auto) 0.1 Urine Bacteria (Auto) None seen 11/19/18 00:20 RBC 3.65 L MCV 93.3 MCHC 33.5 RDW 13.6 MPV 8.8 Neutrophils % 76.6 Lymphocytes % 11.5 Monocytes % 11.4 H Eosinophils % 0.4 Basophils % 0.1 - Medications Given in the ED: ED Medications Discontinued Medications Generic Name Dose Route Start Last Admin Trade Name Freq PRN Reason Stop Dose Admin Diazepam 5 mg 11/20/18 01:32 11/20/18 01:40 Valium - PO 11/20/18 01:33 5 mg ONCE ONE Administration Ibuprofen 600 mg 11/19/18 23:43 11/20/18 00:15 Motrin - PO 11/19/18 23:44 600 mg ONCE ONE Administration <Lanny Morrow - Last Filed: 11/20/18 02:39> Medical Decision Making - Medical Decision Making 11/20/18 01:46 Sign out received from Dr Norton. "Sebastian Stanford is a 57M at [facility] with PMH thrombocytopenia, for detox from opiates and cocaine presenting with 4 days fever/chills, constipation, and R-sided abd pain. Patient says he has been taking large amounts of opiates and cocaine because his family will give him drugs for free. OD on Fentanyl and hospitalized, now wants to be away from his family and wants detox and rehab. Day 5 [facility] detox, getting methadone, scheduled for admission to 2 weeks rehab. Reports 4 days fever and nighttime chills, as well as R-sided abdominal pain, urinary retention, constipation, poor appetite, headache. Denies nausea, vomiting, dizziness, weakness." Pending CMP, lact, Utox. CBC: thrombocytopenia Strep: neg CXR: neg IVF started, ceftriaxone started. Admit for UTI and fever > MBMD sent. 11/20/18 02:34 CMP, Utox, and Lact reviewed. Of note, + benzos and cocaine, lact 1.5. Signed out to admitting team. Urine culture ordered. <Lanny Morrow - Last Filed: 11/20/18 02:39> *DC/Admit/Observation/Transfer <Evelin Stephen - Last Filed: 11/20/18 02:04> - Discharge Dispostion Decision to Admit order: Yes <Lanny Morrow - Last Filed: 11/20/18 02:39> Diagnosis at time of Disposition: Fever and chills Constipation Qualifiers: Constipation type: unspecified constipation type Qualified Code(s): K59.00 - Constipation, unspecified - Discharge Dispostion Condition at time of disposition: Guarded
--- NOTE | 2018-11-20 01:57 | PDOC ---
Documentation entered by Claudine Rosado SCRIBE, acting as scribe for Evelin Stephen MD. Evelin Stephen MD: This documentation has been prepared by the Alonzo lentz Xhesika, SCRIBE, under my direction and personally reviewed by me in its entirety. I confirm that the documentation accurately reflects all work, treatment, procedures, and medical decision making performed by me. Attending Attestation - Resident Resident Name: Vitor Norton - ED Attending Attestation I have performed the following: I have examined & evaluated the patient, The case was reviewed & discussed with the resident, I agree w/resident's findings & plan - HPI HPI: 11/19/18 23:38 The patient is a 57 year old male with a significant PMH of heroin/cocaine, and opioid use who presents to the emergency department from [facility] for 4 days of intermittent fever (102+) associated with belly pain. Patient states he has been eating fine in detox, however, when he is using drugs he endorse decreased appetite. Pateint received 650mg Tylenol at [facility]. Patient denies sick contact or recent travel. The patient denies chest pain, shortness of breath, headache and dizziness. Denies chills, cough, nausea, vomiting, diarrhea and constipation. Denies dysuria, frequency, urgency and hematuria. Allergies: NKDA - Physicial Exam PE: 11/19/18 23:38 GENERAL: Awake, alert, and fully oriented, in no acute distress HEAD: No signs of trauma EYES: PERRLA, EOMI, sclera anicteric, conjunctiva clear ENT: Auricles normal inspection, hearing grossly normal, nares patent, oropharynx clear without exudates. Moist mucosa NECK: Normal ROM, supple, no lymphadenopathy, JVD, or masses LUNGS: Breath sounds equal, clear to auscultation bilaterally. No wheezes, and no crackles HEART: Regular rate and rhythm, normal S1 and S2, no murmurs, rubs or gallops ABDOMEN: Soft, nontender, normoactive bowel sounds. No guarding, no rebound. No masses EXTREMITIES: Normal range of motion, no edema. No clubbing or cyanosis. No cords, erythema, or tenderness NEUROLOGICAL: Cranial nerves II through XII grossly intact. SKIN: Warm, Dry, normal turgor, no rashes or lesions noted. - Medical Decision Making 11/20/18 01:50 Pt comes with fever of 102 on off x 4 days and currently fever. He is at [facility]. He is dehydrated and not eating well. He has a hx of IVDA; he may have valve infection. Currently with difficulty urinating and he has a UTI 11/20/18 01:51 Strep negative; CXR normal.
[2018-11-20 02:04] LABS: METHADONE, UR NEGATIVE ng/ml (CUTOFF=300); OPIATES, URI NEGATIVE ng/ml (CUTOFF=300); PHENCYCLIDINE,URINE NEGATIVE ng/ml (CUTOFF=25); URINE AMPHETAMINES NEGATIVE ng/ml (CUTOFF=500); URINE BARBITURATES NEGATIVE ng/ml (CUTOFF=200)
[2018-11-20 02:06] LABS: URINE BENZODIAZEPINES POSITIVE ng/ml (CUTOFF=200)
[2018-11-20 02:07] LABS: COCAINE, UR POSITIVE ng/ml (CUTOFF=300)
[2018-11-20] MEDS ORDERED: SODIUM CHLORIDE 1,000 ML IV SCH (03:45)
--- NOTE | 2018-11-20 04:36 | PN ---
Teaching Attending Note Name of Resident: Jihan Black ATTENDING PHYSICIAN STATEMENT I saw and evaluated the patient. I reviewed the resident's note and discussed the case with the resident. I agree with the resident's findings and plan as documented. SUBJECTIVE: Patient is a 57 year old man with a PMH of Thrombocytopenia, Tobacco use, Heroin /cocaine abuse, and Opioid abuse who presents to the ER from [facility] for 4 days of intermittent fever (102+) associated with right side abdominal pain. Patient states he has been eating fine in detox, however, when he is using drugs he has decreased appetite. Pateint received 650 mg tylenol at [facility]. Patient denies sick contact or recent travel. Reports nighttime chills, as well as R-sided abdominal pain, urinary retention, constipation, poor appetite and headache. The patient denies chest pain, shortness of breath or dizziness. Denies cough, nausea, vomiting or diarrhea. Denies dysuria, frequency, urgency and hematuria. Patient is homeless. OBJECTIVE: Alert and unkempt Vital Signs Period Temp Pulse Resp BP Sys/Hummel Pulse Ox Last 24 Hr 98.4 F-101.2 F 69-91 20-20 97-109/47-67 98-99 HEENT: No Jaundice, eye redness or discharge, PERRLA, EOMI. Normocephalic, atraumatic. External ears are normal and hearing is grossly intact. No nasal discharge. Neck: Supple, nontender. No palpable adenopathy or thyromegaly. No JVD Chest: Good effort. Clear to auscultation and percussion. Heart: Regular. No S3, rub or murmur Abdomen: Not distended, soft, right midabdominal tenderness and no HSM. No rebound or guarding. Normal bowel sounds. Ext: Peripheral pulses intact. No leg edema. Blisters on his feet. Skin: Warm and dry. No petechiae, rash or ecchymosis. Neuro: Alert. Oriented x3. CN 2-12 grossly intact. Sensation grossly intact in all four extremities and DTR are symmetric. Psych: Appropriate mood and affect. Good insight. Current Medications Generic Name Dose Route Start Last Admin Trade Name Freq PRN Reason Stop Dose Admin Enoxaparin Sodium 40 mg 11/20/18 10:00 Lovenox - SQ DAILY KAYLYN Ceftriaxone Sodium 1 gm/ 50 mls @ 200 mls/hr 11/21/18 01:40 Dextrose IVPB DAILY [facility] Protocol Sodium Chloride 1,000 mls @ 125 mls/hr 11/20/18 03:45 Normal Saline - IV ASDIR [facility] Home Medications Medication Instructions Recorded Acetaminophen [Tylenol] 650 mg PO QID PRN 11/20/18 Bismuth Subsalicylate 524 mg PO PRN PRN 11/20/18 [Pepto-Bismol -] Diazepam [Valium] 10 mg PO QID PRN 11/20/18 Mag Hydrox/Al Hydrox/Simeth 30 ml PO Q6H 11/20/18 [Mylanta *Suspension*] Magnesium Citrate [Citroma -] 150 ml PO Q2D 11/20/18 Magnesium Hydrox 2400MG/30Ml [Milk 30 ml PO DAILY PRN 11/20/18 of Magnesia -] Melatonin 5 mg PO HS 11/20/18 Menthol/Phenol [Cepastat Lozenge -] 1 each MM Q4H 11/20/18 Methadone [Dolophine -] 5 mg PO AM 11/20/18 Methocarbamol [Robaxin -] 500 mg PO QID 11/20/18 Nicotine Patch [Nicoderm Patch -] 1 patch TD DAILY 11/20/18 Thiamine Mononitrate [Vitamin B-1] 100 mg PO HS 11/20/18 hydrOXYzine PAMOATE [Vistaril -] 25 mg PO QID 11/20/18 traZODone HCL [Desyrel -] 50 mg PO HS 11/20/18 Abnormal Lab Results 11/19/18 11/19/18 11/20/18 00:20 00:20 00:30 RBC 3.65 L Hgb 11.4 L Hct 34.1 L Plt Count 72 L D Monocytes % 11.4 H Anion Gap 5 L Random Glucose 128 H Calcium 7.7 L Total Protein 6.0 L Albumin 2.3 L Urine pH >= 9.0 H D Urine Blood 1+ H Ur Leukocyte Esterase 2+ H Benzodiazepines Screen Cocaine Screen 11/20/18 00:30 RBC Hgb Hct Plt Count Monocytes % Anion Gap Random Glucose Calcium Total Protein Albumin Urine pH Urine Blood Ur Leukocyte Esterase Benzodiazepines Screen Positive A* Cocaine Screen Positive A* ASSESSMENT AND PLAN: 1. UTI - Will treat with IV Rocephin and hydrate with IV NS. Urine pH of >9 suggests infection with a urea splitting organism. No acute abnormality on CXR. EKG shows NSR with no significant ST-T wave changes. He has benzos and cocaine in his urine. Will get CT scan of abdomen/pelvis, HbA1c, HIV test, care for blisters on his feet. Consult ID and discuss workup for TB in view of night chills. Consult pediatric social worker to help get him shoes. Thrombocytopenia is unexplained - if no splenomegaly on CT, will consult hematology. Monitor daily. 2. Hypoalbuminemia - Possibly due to combined effects of malnutrition and inflammation associated with comorbid chronic conditions. Will ensure adequate dietary protein intake and also consult cow tender. 3. Tobacco Use Counseled on risks associated with tobacco use. We will provide patient all the necessary assistance to facilitate smoking cessation and prescribe Nicotine patch. 4. Anemia - Cause unclear. Will do basic anemia work up including serial stool guaiacs, reticulocyte count and iron studies. 5. Drug abuse - Monitor closely for drug withdrawal. Do neurochecks. Implement seizure, fall and aspiration precautions. Counseled patient about abstaining from illicit drug use. Will consult fire support specialist and refer to drug detox upon discharge. 6. DVT prophylaxis - Lovenox 40 mg SQ q 24 hours. Will monitor platelets daily. 7. Advance directives - Full code
--- NOTE | 2018-11-20 05:12 | HP ---
CHIEF COMPLAINT: fever, urinary complaints PCP: none HISTORY OF PRESENT ILLNESS: Sebastian Stanford is a 57 year old male with a past medical history of thrombocytopenia with unknown cause, IVDU of cocaine and heroin, recent treatment for Hepatitis C. Patient was recently treated for fentanyl overdose and received Narcan 3 weeks ago. He is living partially on the [address] and in temporary housing with his son. Patient went into detox at [facility] on 11/15/18 for heroin and cocaine and was scheduled to begin rehab on 11/20/18. During his stay at [facility] the patient stated that he began to feel feverish, had chills , began to develop some constipation, and stated he had dysuria, frequency, urgency, and incomplete bladder emptying. He also stated that he had not had good hygiene for quite a while due to him living on the streets. Additionally, he endorsed a headache and poor appetite. Noted that he had nighttime chills. Denied chest pain, shortness of breath, abdominal pain, nausea, vomiting, diarrhea, numbness, tingling, visual/auditory hallucinations, SI/HI. ER course was notable for: (1) Thrombocytopenia at 72, UA 1+ blood, 2+ LE 51 WBC, Utox + for benzo, cocaine (2) febrile to 101.2 (3) given NS, ceftriaxone, ibuprofen, valium PAST MEDICAL HISTORY: as above PAST SURGICAL HISTORY: denies Social History: Smoking: denies Alcohol: denies Drugs: 1g of cocaine, 1g of heroin daily IVDU, injecting at various sites on the arms (denies other site), denies other drug use Homeless, occasionally lives with son in temporary housing family provides him with drugs Family History: denies significant family history Allergies No Known Allergies Allergy (Verified 11/15/18 09:45) HOME MEDICATIONS: Home Medications Medication Instructions Recorded Acetaminophen [Tylenol] 650 mg PO QID PRN 11/20/18 Bismuth Subsalicylate 524 mg PO PRN PRN 11/20/18 [Pepto-Bismol -] Diazepam [Valium] 10 mg PO QID PRN 11/20/18 Mag Hydrox/Al Hydrox/Simeth 30 ml PO Q6H 11/20/18 [Mylanta *Suspension*] Magnesium Citrate [Citroma -] 150 ml PO Q2D 11/20/18 Magnesium Hydrox 2400MG/30Ml [Milk 30 ml PO DAILY PRN 11/20/18 of Magnesia -] Melatonin 5 mg PO HS 11/20/18 Menthol/Phenol [Cepastat Lozenge -] 1 each MM Q4H 11/20/18 Methadone [Dolophine -] 5 mg PO AM 11/20/18 Methocarbamol [Robaxin -] 500 mg PO QID 11/20/18 Nicotine Patch [Nicoderm Patch -] 1 patch TD DAILY 11/20/18 Thiamine Mononitrate [Vitamin B-1] 100 mg PO HS 11/20/18 hydrOXYzine PAMOATE [Vistaril -] 25 mg PO QID 11/20/18 traZODone HCL [Desyrel -] 50 mg PO HS 11/20/18 REVIEW OF SYSTEMS CONSTITUTIONAL: fever, chills, loss of appetite Absent: diaphoresis, generalized weakness, malaise, weight change HEENT: Absent: rhinorrhea, nasal congestion, throat pain, throat swelling, difficulty swallowing, visual changes CARDIOVASCULAR: Absent: chest pain, syncope, palpitations, irregular heart rate, lightheadedness , RESPIRATORY: Absent: cough, shortness of breath, dyspnea with exertion, orthopnea, wheezing, GASTROINTESTINAL: constipation Absent: abdominal pain, abdominal distension, nausea, vomiting, diarrhea, GENITOURINARY: dysuria, frequency, urgency, incomplete emptying Absent: hesitancy, hematuria, flank pain, MUSCULOSKELETAL: Absent: myalgia, arthralgia, joint swelling, back pain, SKIN: Absent: rash, itching, pallor HEMATOLOGIC/IMMUNOLOGIC: Absent: easy bleeding, easy bruising, lymphadenopathy, frequent infections ENDOCRINE: Absent: unexplained weight gain, unexplained weight loss, heat intolerance, cold intolerance NEUROLOGIC: headache Absent: focal weakness or paresthesias, dizziness, unsteady gait, seizure, mental status changes, bladder or bowel incontinence PSYCHIATRIC: Absent: anxiety, depression, suicidal or homicidal ideation, hallucinations. PHYSICAL EXAMINATION Vital Signs - 24 hr 11/19/18 11/20/18 11/20/18 22:23 02:58 03:04 Temperature 101.2 F H 98.4 F Pulse Rate 91 H Pulse Rate [ 69 Apical] Respiratory 20 20 Rate Blood Pressure 97/47 L Blood Pressure 109/67 [Right Arm] O2 Sat by Pulse 98 99 99 Oximetry (%) GENERAL: Awake, alert, and fully oriented, in moderate acute distress. Disheveled HEAD: Normal with no signs of trauma. EYES: Pupils equal, round and reactive to light, extraocular movements intact, sclera anicteric, conjunctiva clear. EARS, NOSE, THROAT: Oropharynx clear without exudates. Dry mucous membranes. NECK: Normal range of motion, supple without lymphadenopathy, JVD. LUNGS: Breath sounds equal, clear to auscultation bilaterally. No wheezes, and no crackles. No accessory muscle use. HEART: Regular rate and rhythm, normal S1 and S2 without murmur, rub or gallop. ABDOMEN: Soft, nontender, not distended, normoactive bowel sounds, no guarding, no rebound, no masses. MUSCULOSKELETAL: Normal range of motion at all joints. No bony deformities or tenderness. No CVA tenderness. UPPER EXTREMITIES: 2+ pulses, warm, well-perfused. No cyanosis. No clubbing. No peripheral edema. LOWER EXTREMITIES: 2+ pulses, warm, well-perfused. No calf tenderness. No peripheral edema. NEUROLOGICAL: Cranial nerves II-XII intact. Muscle strength 5/5 bilaterally upper and lower extremities. PSYCHIATRIC: Cooperative. Good eye contact. Appropriate mood and affect. SKIN: Warm, dry, normal turgor, feet with multiple blisters and cuts. Laboratory Results - last 24 hr 11/19/18 11/19/18 11/19/18 00:20 00:20 00:20 WBC 5.3 RBC 3.65 L Hgb 11.4 L Hct 34.1 L MCV 93.3 MCH 31.3 MCHC 33.5 RDW 13.6 Plt Count 72 L D MPV 8.8 Absolute Neuts (auto) 4.0 Neutrophils % 76.6 Lymphocytes % 11.5 Monocytes % 11.4 H Eosinophils % 0.4 Basophils % 0.1 Nucleated RBC % 0 Sodium 136 Potassium 4.6 Chloride 102 Carbon Dioxide 29 Anion Gap 5 L BUN 13.2 Creatinine 0.9 Est GFR (CKD-EPI)AfAm 110.27 Est GFR (CKD-EPI)NonAf 95.14 Random Glucose 128 H Lactic Acid Calcium 7.7 L Total Bilirubin 0.6 AST 33 ALT 25 Alkaline Phosphatase 70 Creatine Kinase Cancelled Troponin I Cancelled Total Protein 6.0 L Albumin 2.3 L Lipase Urine Color Urine Appearance Urine pH Ur Specific [place] Urine Protein Urine Glucose (UA) Urine Ketones Urine Blood Urine Nitrite Urine Bilirubin Urine Urobilinogen Ur Leukocyte Esterase Urine WBC (Auto) Urine RBC (Auto) Urine Casts (Auto) U Epithel Cells (Auto) Urine Bacteria (Auto) Opiates Screen Methadone Screen Barbiturate Screen Phencyclidine Screen Ur Amphetamines Screen MDMA (Ecstasy) Screen Benzodiazepines Screen Cocaine Screen U Marijuana (THC) Screen Group A Strep Rapid 11/19/18 11/19/18 11/20/18 00:20 23:30 00:30 WBC RBC Hgb Hct MCV MCH MCHC RDW Plt Count MPV Absolute Neuts (auto) Neutrophils % Lymphocytes % Monocytes % Eosinophils % Basophils % Nucleated RBC % Sodium Potassium Chloride Carbon Dioxide Anion Gap BUN Creatinine Est GFR (CKD-EPI)AfAm Est GFR (CKD-EPI)NonAf Random Glucose Lactic Acid Calcium Total Bilirubin AST ALT Alkaline Phosphatase Creatine Kinase 32 Troponin I < 0.02 Total Protein Albumin Lipase 81 Urine Color Dk yellow Urine Appearance Clear Urine pH >= 9.0 H D Ur Specific [place] 1.022 Urine Protein Trace Urine Glucose (UA) Negative Urine Ketones Negative Urine Blood 1+ H Urine Nitrite Negative Urine Bilirubin Negative Urine Urobilinogen 2.0 Ur Leukocyte Esterase 2+ H Urine WBC (Auto) 51 Urine RBC (Auto) 20 Urine Casts (Auto) 45 U Epithel Cells (Auto) 0.1 Urine Bacteria (Auto) None seen Opiates Screen Methadone Screen Barbiturate Screen Phencyclidine Screen Ur Amphetamines Screen MDMA (Ecstasy) Screen Benzodiazepines Screen Cocaine Screen U Marijuana (THC) Screen Group A Strep Rapid Negative 11/20/18 11/20/18 00:30 01:30 WBC RBC Hgb Hct MCV MCH MCHC RDW Plt Count MPV Absolute Neuts (auto) Neutrophils % Lymphocytes % Monocytes % Eosinophils % Basophils % Nucleated RBC % Sodium Potassium Chloride Carbon Dioxide Anion Gap BUN Creatinine Est GFR (CKD-EPI)AfAm Est GFR (CKD-EPI)NonAf Random Glucose Lactic Acid 1.5 Calcium Total Bilirubin AST ALT Alkaline Phosphatase Creatine Kinase Troponin I Total Protein Albumin Lipase Urine Color Urine Appearance Urine pH Ur Specific [place] Urine Protein Urine Glucose (UA) Urine Ketones Urine Blood Urine Nitrite Urine Bilirubin Urine Urobilinogen Ur Leukocyte Esterase Urine WBC (Auto) Urine RBC (Auto) Urine Casts (Auto) U Epithel Cells (Auto) Urine Bacteria (Auto) Opiates Screen Negative Methadone Screen Negative Barbiturate Screen Negative Phencyclidine Screen Negative Ur Amphetamines Screen Negative MDMA (Ecstasy) Screen Negative Benzodiazepines Screen Positive A* Cocaine Screen Positive A* U Marijuana (THC) Screen Negative Group A Strep Rapid EKG--> NSR, TC 429 ASSESSMENT/PLAN: Sebastian Stanford is a 57 year old male with a past medical history of thrombocytopenia with unknown cause, IVDU of cocaine and heroin, recent treatment for Hepatitis C admitted for treatment of likely UTI. UTI Opiate Abuse Cocaine Abuse Anemia Hypoalbuniemia Thrombocytopenia Extensive Foor Blistering UTI - likely in setting of poor hygiene, no recent instrumentation or catheter insertion - UA with elevated pH, possible urea producing organism - cultures pending - continue ceftriaxone daily - spiral CT to evaluate for renal stones in setting of blood in urine - maintain adequate hydration with NS at 125 - ID consulted, also in setting of recent Hep C treatment and questionable TB process due to night sweats and risk factors - HIV test ordered Opiate Abuse - complete detox, scheduled to begin rehab - continue to monitor for signs of withdrawal - COWS 4 on admission - Dr. Higgins consulted - falls, aspiration, seizure precautions Cocaine Abuse - continue symptomatic treatment for withdrawal symptoms Anemia - unclear history - iron studies, reticulocytes count, ferritin Hypoalbuniemia - likely in setting of poor oral intake - dietary consult - encourage PO intake Thrombocytopenia - unclear history - if no splenomegaly on CT, can consider hematology consult Extensive Foot Blistering - in setting of poor foot care and lack of shoes - Dr. Blum consulted - social work consulted to help find shoes for patient FEN - NS at 125cc/hr - continue to monitor electrolytes and replete as necessary - regular diet Prophylaxis - Lovenox 40mg subq daily Code - full code HINA NUÑEZ DO - PGY-1 Visit type - Emergency Visit Emergency Visit: Yes ED Registration Date: 11/20/18 Care time: The patient presented to the Emergency Department on the above date and was hospitalized for further evaluation of their emergent condition. - New Patient This patient is new to me today: Yes Date on this admission: 11/20/18 - Critical Care Critical Care patient: No
[2018-11-20 05:23] VITALS: BMI 23.5
--- NOTE | 2018-11-20 09:08 | EKG ---
Test Reason : Blood Pressure : / mmHG Vent. Rate : 068 BPM Atrial Rate : 068 BPM P-R Int : 184 ms QRS Dur : 082 ms QT Int : 404 ms P-R-T Axes : 054 034 030 degrees QTc Int : 429 ms NORMAL SINUS RHYTHM NORMAL ECG NO PREVIOUS ECGS AVAILABLE Confirmed by RENETTA SONI, LEANNE ([id number]) on 11/20/2018 9:07:32 AM Referred By: Confirmed By:LEANNE JACKSON MD
[2018-11-20 09:56] LABS: BASO % 0.2 % (0-2.0); EOS % 0.6 % (0-4.5); HEMATOCRIT 34.4 % (35.4-49); HEMOGLOBIN 11.9 GM/dL (11.7-16.9); LYMPH % 11.5 % (8-40); MCH 31.8 pg (25.7-33.7); MCHC 34.5 g/dl (32.0-35.9); MEAN CELL VOLUME 92.3 fl (80-96); MEAN PLT VOLUME 8.3 fl (7.5-11.1); MONO % 10.3 % (3.8-10.2); NEUT % 77.4 % (42.8-82.8); PLATELET COUNT 70 K/MM3 (134-434); RBC 3.73 M/mm3 (4.00-5.60); RDW 13.9 % (11.9-15.9); WHITE BLOOD COUNT 5.7 K/mm3 (4.0-10.0)
[2018-11-20] MEDS ORDERED: ENOXAPARIN NA (PORCINE) 40 MG/0.4 ML DISP.SYRIN SQ SCH (10:00)
[2018-11-20 10:12] LABS: ALBUMIN 2.3 g/dl (3.4-5.0); CALCIUM 7.7 mg/dL (8.5-10.1); CREATININE 0.8 mg/dL (0.55-1.3); MAGNESIUM 1.9 mg/dL (1.8-2.4); POTASSIUM 4.7 mmol/L (3.5-5.1)
[2018-11-20] MEDS ORDERED: IBUPROFEN 400 MG TABLET (FP) PO PRN (10:46)
[2018-11-20] MEDS: FERROUS SO4 300 MG/5 ML ORAL SOLN UNIT DOSE CUPS PO SCH (11:10)
--- NOTE | 2018-11-20 12:41 | PN ---
Physical Exam: SUBJECTIVE: Patient seen and examined at bedside. Pt complains of chills and requests valium OBJECTIVE: Vital Signs Period Temp Pulse Resp BP Sys/Hummel Pulse Ox Last 24 Hr 97.8 F-101.2 F 61-94 20-20 97-132/47-72 98-99 Gen: uncomfortable appearing, AAOx3 HEENT: NCAT, EOMI Neck: supple, no jvd Cardio: rrr, normal s1s2, no mrg Pulm: CTA b/l Abd: supple, no jvd, full bladder Ext: no edema, 2+ pulses Laboratory Results - last 24 hr 11/19/18 11/19/18 11/19/18 00:20 00:20 00:20 WBC 5.3 RBC 3.65 L Hgb 11.4 L Hct 34.1 L MCV 93.3 MCH 31.3 MCHC 33.5 RDW 13.6 Plt Count 72 L D MPV 8.8 Absolute Neuts (auto) 4.0 Neutrophils % 76.6 Lymphocytes % 11.5 Monocytes % 11.4 H Eosinophils % 0.4 Basophils % 0.1 Nucleated RBC % 0 Retic Count Sodium 136 Potassium 4.6 Chloride 102 Carbon Dioxide 29 Anion Gap 5 L BUN 13.2 Creatinine 0.9 Est GFR (CKD-EPI)AfAm 110.27 Est GFR (CKD-EPI)NonAf 95.14 Random Glucose 128 H Hemoglobin A1c % Lactic Acid Calcium 7.7 L Magnesium Iron TIBC Iron Saturation Unsaturated IBC Ferritin Total Bilirubin 0.6 AST 33 ALT 25 Alkaline Phosphatase 70 Creatine Kinase Cancelled Troponin I Cancelled Total Protein 6.0 L Albumin 2.3 L Lipase Urine Color Urine Appearance Urine pH Ur Specific [place] Urine Protein Urine Glucose (UA) Urine Ketones Urine Blood Urine Nitrite Urine Bilirubin Urine Urobilinogen Ur Leukocyte Esterase Urine WBC (Auto) Urine RBC (Auto) Urine Casts (Auto) U Epithel Cells (Auto) Urine Bacteria (Auto) Opiates Screen Methadone Screen Barbiturate Screen Phencyclidine Screen Ur Amphetamines Screen MDMA (Ecstasy) Screen Benzodiazepines Screen Cocaine Screen U Marijuana (THC) Screen HIV 1&2 Antibody Screen HIV P24 Antigen Group A Strep Rapid 11/19/18 11/19/18 11/20/18 00:20 23:30 00:30 WBC RBC Hgb Hct MCV MCH MCHC RDW Plt Count MPV Absolute Neuts (auto) Neutrophils % Lymphocytes % Monocytes % Eosinophils % Basophils % Nucleated RBC % Retic Count Sodium Potassium Chloride Carbon Dioxide Anion Gap BUN Creatinine Est GFR (CKD-EPI)AfAm Est GFR (CKD-EPI)NonAf Random Glucose Hemoglobin A1c % Lactic Acid Calcium Magnesium Iron TIBC Iron Saturation Unsaturated IBC Ferritin Total Bilirubin AST ALT Alkaline Phosphatase Creatine Kinase 32 Troponin I < 0.02 Total Protein Albumin Lipase 81 Urine Color Dk yellow Urine Appearance Clear Urine pH >= 9.0 H D Ur Specific [place] 1.022 Urine Protein Trace Urine Glucose (UA) Negative Urine Ketones Negative Urine Blood 1+ H Urine Nitrite Negative Urine Bilirubin Negative Urine Urobilinogen 2.0 Ur Leukocyte Esterase 2+ H Urine WBC (Auto) 51 Urine RBC (Auto) 20 Urine Casts (Auto) 45 U Epithel Cells (Auto) 0.1 Urine Bacteria (Auto) None seen Opiates Screen Methadone Screen Barbiturate Screen Phencyclidine Screen Ur Amphetamines Screen MDMA (Ecstasy) Screen Benzodiazepines Screen Cocaine Screen U Marijuana (THC) Screen HIV 1&2 Antibody Screen HIV P24 Antigen Group A Strep Rapid Negative 11/20/18 11/20/18 11/20/18 00:30 01:30 09:00 WBC 5.7 RBC 3.73 L Hgb 11.9 Hct 34.4 L MCV 92.3 MCH 31.8 MCHC 34.5 RDW 13.9 Plt Count 70 L MPV 8.3 Absolute Neuts (auto) 4.4 Neutrophils % 77.4 Lymphocytes % 11.5 Monocytes % 10.3 H Eosinophils % 0.6 Basophils % 0.2 Nucleated RBC % 0 Retic Count Sodium Potassium Chloride Carbon Dioxide Anion Gap BUN Creatinine Est GFR (CKD-EPI)AfAm Est GFR (CKD-EPI)NonAf Random Glucose Hemoglobin A1c % Lactic Acid 1.5 Calcium Magnesium Iron TIBC Iron Saturation Unsaturated IBC Ferritin Total Bilirubin AST ALT Alkaline Phosphatase Creatine Kinase Troponin I Total Protein Albumin Lipase Urine Color Urine Appearance Urine pH Ur Specific [place] Urine Protein Urine Glucose (UA) Urine Ketones Urine Blood Urine Nitrite Urine Bilirubin Urine Urobilinogen Ur Leukocyte Esterase Urine WBC (Auto) Urine RBC (Auto) Urine Casts (Auto) U Epithel Cells (Auto) Urine Bacteria (Auto) Opiates Screen Negative Methadone Screen Negative Barbiturate Screen Negative Phencyclidine Screen Negative Ur Amphetamines Screen Negative MDMA (Ecstasy) Screen Negative Benzodiazepines Screen Positive A* Cocaine Screen Positive A* U Marijuana (THC) Screen Negative HIV 1&2 Antibody Screen HIV P24 Antigen Group A Strep Rapid 11/20/18 11/20/18 11/20/18 09:00 09:00 09:00 WBC RBC Hgb Hct MCV MCH MCHC RDW Plt Count MPV Absolute Neuts (auto) Neutrophils % Lymphocytes % Monocytes % Eosinophils % Basophils % Nucleated RBC % Retic Count Sodium 140 Potassium 4.7 Chloride 107 Carbon Dioxide 29 Anion Gap 4 L BUN 14.0 Creatinine 0.8 Est GFR (CKD-EPI)AfAm 115.74 Est GFR (CKD-EPI)NonAf 99.86 Random Glucose 86 Hemoglobin A1c % 5.0 Lactic Acid Calcium 7.7 L Magnesium 1.9 Iron TIBC Iron Saturation Unsaturated IBC Ferritin Total Bilirubin 1.0 AST 32 ALT 23 Alkaline Phosphatase 62 Creatine Kinase Troponin I Total Protein 6.0 L Albumin 2.3 L Lipase Urine Color Urine Appearance Urine pH Ur Specific [place] Urine Protein Urine Glucose (UA) Urine Ketones Urine Blood Urine Nitrite Urine Bilirubin Urine Urobilinogen Ur Leukocyte Esterase Urine WBC (Auto) Urine RBC (Auto) Urine Casts (Auto) U Epithel Cells (Auto) Urine Bacteria (Auto) Opiates Screen Methadone Screen Barbiturate Screen Phencyclidine Screen Ur Amphetamines Screen MDMA (Ecstasy) Screen Benzodiazepines Screen Cocaine Screen U Marijuana (THC) Screen HIV 1&2 Antibody Screen Negative HIV P24 Antigen Negative Group A Strep Rapid 11/20/18 11/20/18 09:00 09:15 WBC RBC Hgb Hct MCV MCH MCHC RDW Plt Count MPV Absolute Neuts (auto) Neutrophils % Lymphocytes % Monocytes % Eosinophils % Basophils % Nucleated RBC % Retic Count 1.56 H Sodium Potassium Chloride Carbon Dioxide Anion Gap BUN Creatinine Est GFR (CKD-EPI)AfAm Est GFR (CKD-EPI)NonAf Random Glucose Hemoglobin A1c % Lactic Acid Calcium Magnesium Iron 38 L TIBC 178 L Iron Saturation 21 Unsaturated IBC 140 L Ferritin 226.3 Total Bilirubin AST ALT Alkaline Phosphatase Creatine Kinase Troponin I Total Protein Albumin Lipase Urine Color Urine Appearance Urine pH Ur Specific [place] Urine Protein Urine Glucose (UA) Urine Ketones Urine Blood Urine Nitrite Urine Bilirubin Urine Urobilinogen Ur Leukocyte Esterase Urine WBC (Auto) Urine RBC (Auto) Urine Casts (Auto) U Epithel Cells (Auto) Urine Bacteria (Auto) Opiates Screen Methadone Screen Barbiturate Screen Phencyclidine Screen Ur Amphetamines Screen MDMA (Ecstasy) Screen Benzodiazepines Screen Cocaine Screen U Marijuana (THC) Screen HIV 1&2 Antibody Screen HIV P24 Antigen Group A Strep Rapid Active Medications Generic Name Dose Route Start Last Admin Trade Name Freq PRN Reason Stop Dose Admin Ferrous Sulfate 300 mg 11/20/18 11:00 11/20/18 11:10 Feosol PO 300 mg DAILY KAYLYN Administration Ceftriaxone Sodium 1 gm/ 50 mls @ 200 mls/hr 11/21/18 01:40 Dextrose IVPB DAILY KAYLYN Protocol Sodium Chloride 1,000 mls @ 125 mls/hr 11/20/18 03:45 11/20/18 10:45 Normal Saline - IV 125 mls/hr ASDIR KAYLYN Administration Ibuprofen 400 mg 11/20/18 10:46 11/20/18 11:10 Motrin - PO 400 mg Q6H PRN Administration FEVER ASSESSMENT/PLAN: 57 year old male with a past medical history of thrombocytopenia with unknown cause, IVDU of cocaine and heroin, recent treatment for Hepatitis C admitted for treatment of likely UTI. UTI - likely in setting of poor hygiene, no recent instrumentation or catheter insertion - UA with elevated pH, possible urea producing organism - cultures pending - continue ceftriaxone daily - spiral CT to evaluate for renal stones in setting of blood in urine. Result pending - maintain adequate hydration with NS at 125. Pt has poor PO intake - ID consulted, also in setting of recent Hep C treatment and questionable TB process due to night sweats and risk factors - HIV test ordered Opiate Abuse - completed detox, scheduled to begin rehab - continue to monitor for signs of withdrawal - COWS 4 on admission - Dr. Higgins consulted. F/u recs - falls, aspiration, seizure precautions Anemia -Hb above limit of anemia - unclear history - iron studies, ferritin Hypoalbuniemia - likely in setting of poor oral intake - dietary consult - encourage PO intake Thrombocytopenia - unclear history - CT pending Extensive Foot Blistering - in setting of poor foot care and lack of shoes - Dr. Blum consulted - social work consulted to help find shoes for patient FEN - NS at 125cc/hr - continue to monitor electrolytes and replete as necessary - regular diet Prophylaxis - Lovenox 40mg subq daily Code - full code Visit type - Emergency Visit Emergency Visit: Yes ED Registration Date: 11/20/18 Care time: The patient presented to the Emergency Department on the above date and was hospitalized for further evaluation of their emergent condition. - New Patient This patient is new to me today: Yes Date on this admission: 11/20/18 - Critical Care Critical Care patient: No ATTENDING PHYSICIAN STATEMENT I saw and evaluated the patient. I reviewed the resident's note and discussed the case with the resident. I agree with the resident's findings and plan as documented. SUBJECTIVE: OBJECTIVE: ASSESSMENT AND PLAN:
--- NOTE | 2018-11-20 13:50 | PN ---
Teaching Attending Note Name of Resident: Julian Jenkins ATTENDING PHYSICIAN STATEMENT I saw and evaluated the patient. I reviewed the resident's note and discussed the case with the resident. I agree with the resident's findings and plan as documented with exceptions below. SUBJECTIVE: Patient seen and examined. deneis any abdominal pain. Still with dysuria and urinary frequency. OBJECTIVE: Vital Signs Period Temp Pulse Resp BP Sys/Hummel Pulse Ox Last 24 Hr 97.8 F-101.2 F 61-94 20-20 97-132/47-72 98-99 Intake & Output 11/17/18 11/18/18 11/19/18 11/20/18 23:59 23:59 23:59 23:59 Intake Total 120 Balance 120 Weight 175 lb 178 lb General: lying in bed in no acute distress CVS:S1s2 regular Chest: CTAB, no rales or wheezing Abdomen:soft, NT throughout, ND, pos bowel sounds, no CVA or suprapubic tenderness Extremities: no edema HEENT: PERRLA, EOMI Home Medications Medication Instructions Recorded Acetaminophen [Tylenol] 650 mg PO QID PRN 11/20/18 Bismuth Subsalicylate 524 mg PO PRN PRN 11/20/18 [Pepto-Bismol -] Diazepam [Valium] 10 mg PO QID PRN 11/20/18 Mag Hydrox/Al Hydrox/Simeth 30 ml PO Q6H 11/20/18 [Mylanta *Suspension*] Magnesium Citrate [Citroma -] 150 ml PO Q2D 11/20/18 Magnesium Hydrox 2400MG/30Ml [Milk 30 ml PO DAILY PRN 11/20/18 of Magnesia -] Melatonin 5 mg PO HS 11/20/18 Menthol/Phenol [Cepastat Lozenge -] 1 each MM Q4H 11/20/18 Methadone [Dolophine -] 5 mg PO AM 11/20/18 Methocarbamol [Robaxin -] 500 mg PO QID 11/20/18 Nicotine Patch [Nicoderm Patch -] 1 patch TD DAILY 11/20/18 Thiamine Mononitrate [Vitamin B-1] 100 mg PO HS 11/20/18 hydrOXYzine PAMOATE [Vistaril -] 25 mg PO QID 11/20/18 traZODone HCL [Desyrel -] 50 mg PO HS 11/20/18 Active Medications Acetaminophen (Tylenol Oral Solution -) 650 mg PO Q6H PRN PRN Reason: PAIN Ferrous Sulfate (Feosol) 300 mg PO DAILY [facility] Last Admin: 11/20/18 11:10 Dose: 300 mg Ceftriaxone Sodium 1 gm/ (Dextrose) 50 mls @ 200 mls/hr IVPB DAILY [facility]; Protocol Sodium Chloride (Normal Saline -) 1,000 mls @ 125 mls/hr IV ASDIR KAYLYN Last Admin: 11/20/18 10:45 Dose: 125 mls/hr Laboratory Results - last 24 hr 11/19/18 11/19/18 11/19/18 00:20 00:20 00:20 WBC 5.3 RBC 3.65 L Hgb 11.4 L Hct 34.1 L MCV 93.3 MCH 31.3 MCHC 33.5 RDW 13.6 Plt Count 72 L D MPV 8.8 Absolute Neuts (auto) 4.0 Neutrophils % 76.6 Lymphocytes % 11.5 Monocytes % 11.4 H Eosinophils % 0.4 Basophils % 0.1 Nucleated RBC % 0 Retic Count Sodium 136 Potassium 4.6 Chloride 102 Carbon Dioxide 29 Anion Gap 5 L BUN 13.2 Creatinine 0.9 Est GFR (CKD-EPI)AfAm 110.27 Est GFR (CKD-EPI)NonAf 95.14 Random Glucose 128 H Hemoglobin A1c % Lactic Acid Calcium 7.7 L Magnesium Iron TIBC Iron Saturation Unsaturated IBC Ferritin Total Bilirubin 0.6 AST 33 ALT 25 Alkaline Phosphatase 70 Creatine Kinase Cancelled Troponin I Cancelled Total Protein 6.0 L Albumin 2.3 L Lipase Urine Color Urine Appearance Urine pH Ur Specific Edmond Urine Protein Urine Glucose (UA) Urine Ketones Urine Blood Urine Nitrite Urine Bilirubin Urine Urobilinogen Ur Leukocyte Esterase Urine WBC (Auto) Urine RBC (Auto) Urine Casts (Auto) U Epithel Cells (Auto) Urine Bacteria (Auto) Opiates Screen Methadone Screen Barbiturate Screen Phencyclidine Screen Ur Amphetamines Screen MDMA (Ecstasy) Screen Benzodiazepines Screen Cocaine Screen U Marijuana (THC) Screen HIV 1&2 Antibody Screen HIV P24 Antigen Group A Strep Rapid 11/19/18 11/19/18 11/20/18 00:20 23:30 00:30 WBC RBC Hgb Hct MCV MCH MCHC RDW Plt Count MPV Absolute Neuts (auto) Neutrophils % Lymphocytes % Monocytes % Eosinophils % Basophils % Nucleated RBC % Retic Count Sodium Potassium Chloride Carbon Dioxide Anion Gap BUN Creatinine Est GFR (CKD-EPI)AfAm Est GFR (CKD-EPI)NonAf Random Glucose Hemoglobin A1c % Lactic Acid Calcium Magnesium Iron TIBC Iron Saturation Unsaturated IBC Ferritin Total Bilirubin AST ALT Alkaline Phosphatase Creatine Kinase 32 Troponin I < 0.02 Total Protein Albumin Lipase 81 Urine Color Dk yellow Urine Appearance Clear Urine pH >= 9.0 H D Ur Specific Edmond 1.022 Urine Protein Trace Urine Glucose (UA) Negative Urine Ketones Negative Urine Blood 1+ H Urine Nitrite Negative Urine Bilirubin Negative Urine Urobilinogen 2.0 Ur Leukocyte Esterase 2+ H Urine WBC (Auto) 51 Urine RBC (Auto) 20 Urine Casts (Auto) 45 U Epithel Cells (Auto) 0.1 Urine Bacteria (Auto) None seen Opiates Screen Methadone Screen Barbiturate Screen Phencyclidine Screen Ur Amphetamines Screen MDMA (Ecstasy) Screen Benzodiazepines Screen Cocaine Screen U Marijuana (THC) Screen HIV 1&2 Antibody Screen HIV P24 Antigen Group A Strep Rapid Negative 11/20/18 11/20/18 11/20/18 00:30 01:30 09:00 WBC 5.7 RBC 3.73 L Hgb 11.9 Hct 34.4 L MCV 92.3 MCH 31.8 MCHC 34.5 RDW 13.9 Plt Count 70 L MPV 8.3 Absolute Neuts (auto) 4.4 Neutrophils % 77.4 Lymphocytes % 11.5 Monocytes % 10.3 H Eosinophils % 0.6 Basophils % 0.2 Nucleated RBC % 0 Retic Count Sodium Potassium Chloride Carbon Dioxide Anion Gap BUN Creatinine Est GFR (CKD-EPI)AfAm Est GFR (CKD-EPI)NonAf Random Glucose Hemoglobin A1c % Lactic Acid 1.5 Calcium Magnesium Iron TIBC Iron Saturation Unsaturated IBC Ferritin Total Bilirubin AST ALT Alkaline Phosphatase Creatine Kinase Troponin I Total Protein Albumin Lipase Urine Color Urine Appearance Urine pH Ur Specific Edmond Urine Protein Urine Glucose (UA) Urine Ketones Urine Blood Urine Nitrite Urine Bilirubin Urine Urobilinogen Ur Leukocyte Esterase Urine WBC (Auto) Urine RBC (Auto) Urine Casts (Auto) U Epithel Cells (Auto) Urine Bacteria (Auto) Opiates Screen Negative Methadone Screen Negative Barbiturate Screen Negative Phencyclidine Screen Negative Ur Amphetamines Screen Negative MDMA (Ecstasy) Screen Negative Benzodiazepines Screen Positive A* Cocaine Screen Positive A* U Marijuana (THC) Screen Negative HIV 1&2 Antibody Screen HIV P24 Antigen Group A Strep Rapid 11/20/18 11/20/18 11/20/18 09:00 09:00 09:00 WBC RBC Hgb Hct MCV MCH MCHC RDW Plt Count MPV Absolute Neuts (auto) Neutrophils % Lymphocytes % Monocytes % Eosinophils % Basophils % Nucleated RBC % Retic Count Sodium 140 Potassium 4.7 Chloride 107 Carbon Dioxide 29 Anion Gap 4 L BUN 14.0 Creatinine 0.8 Est GFR (CKD-EPI)AfAm 115.74 Est GFR (CKD-EPI)NonAf 99.86 Random Glucose 86 Hemoglobin A1c % 5.0 Lactic Acid Calcium 7.7 L Magnesium 1.9 Iron TIBC Iron Saturation Unsaturated IBC Ferritin Total Bilirubin 1.0 AST 32 ALT 23 Alkaline Phosphatase 62 Creatine Kinase Troponin I Total Protein 6.0 L Albumin 2.3 L Lipase Urine Color Urine Appearance Urine pH Ur Specific Edmond Urine Protein Urine Glucose (UA) Urine Ketones Urine Blood Urine Nitrite Urine Bilirubin Urine Urobilinogen Ur Leukocyte Esterase Urine WBC (Auto) Urine RBC (Auto) Urine Casts (Auto) U Epithel Cells (Auto) Urine Bacteria (Auto) Opiates Screen Methadone Screen Barbiturate Screen Phencyclidine Screen Ur Amphetamines Screen MDMA (Ecstasy) Screen Benzodiazepines Screen Cocaine Screen U Marijuana (THC) Screen HIV 1&2 Antibody Screen Negative HIV P24 Antigen Negative Group A Strep Rapid 11/20/18 11/20/18 09:00 09:15 WBC RBC Hgb Hct MCV MCH MCHC RDW Plt Count MPV Absolute Neuts (auto) Neutrophils % Lymphocytes % Monocytes % Eosinophils % Basophils % Nucleated RBC % Retic Count 1.56 H Sodium Potassium Chloride Carbon Dioxide Anion Gap BUN Creatinine Est GFR (CKD-EPI)AfAm Est GFR (CKD-EPI)NonAf Random Glucose Hemoglobin A1c % Lactic Acid Calcium Magnesium Iron 38 L TIBC 178 L Iron Saturation 21 Unsaturated IBC 140 L Ferritin 226.3 Total Bilirubin AST ALT Alkaline Phosphatase Creatine Kinase Troponin I Total Protein Albumin Lipase Urine Color Urine Appearance Urine pH Ur Specific Edmond Urine Protein Urine Glucose (UA) Urine Ketones Urine Blood Urine Nitrite Urine Bilirubin Urine Urobilinogen Ur Leukocyte Esterase Urine WBC (Auto) Urine RBC (Auto) Urine Casts (Auto) U Epithel Cells (Auto) Urine Bacteria (Auto) Opiates Screen Methadone Screen Barbiturate Screen Phencyclidine Screen Ur Amphetamines Screen MDMA (Ecstasy) Screen Benzodiazepines Screen Cocaine Screen U Marijuana (THC) Screen HIV 1&2 Antibody Screen HIV P24 Antigen Group A Strep Rapid CT A/P prelim results noted ASSESSMENT AND PLAN: 57 yom with PMHx of tobacco dependence, IVDU with cocaine/heroine (1 gm daily), chronic thrombocytopenia, hepatitis C s/p treatment 4 years ago, hepatic cirrhosis/splenomegaly sent from [facility] with fevers and urinary symptoms. -Sepsis, from UTI, r/o endocarditis -Cocaine/heroine IVDU -Tobacco dependence -Thrombocytopenia, from hepatic cirrhosis/Splenomegaly -Hepatitis C s/p treatment Plan: CT A/P prelim results noted. No stone or obstructive concerns. Ceftriaxone, follow up blood/urine cultures. ID input. Additional work up including 2Decho/Chest imaging pending clinical course and culture results. Needs outpatient cirrhosis/HCC screening with GI. DVTTPx SCDs given thrombocytopenia Dispo per [facility] notes, patient finished methadone detox. Dispo planning pending clinical course. Discussed with patient and nursing.
[2018-11-20] MEDS: ACETAMINOPHEN 650 MG/20.3 ML ORAL SOLUTION (CUPS) PO PRN (18:14)
--- NOTE | 2018-11-20 19:24 | PN ---
Progress Note (short form) - Note Progress Note: ID CONSULT DICTATED FEVER ? SOURCE ? ? ENDOCARDITIS PENDING SEPSIS WORKUP EMPIRIC CEFTRIAXONE/VANCOMYCIN
[2018-11-20] MEDS: VANCOMYCIN 1 GRAM (PRE-DOCKED) 1,000 MG/250 ML BAG IVPB SCH (19:54)
[2018-11-21] MEDS ORDERED: cefTRIAXone SODIUM 1 GM VIAL ONE ×2 (00:53→09:40)
[2018-11-21] MEDS ORDERED: DEXTROSE 5%-WATER - 50 ML IVPB ONE ×2 (00:53→09:41)
[2018-11-21] MEDS: CEFTRIAXONE 1 GM in DEXTROSE 5%-WATER - 50 ML IVPB SCH ×2 (00:54→12:03)
[2018-11-21] MEDS: ACETAMINOPHEN 650 MG/20.3 ML ORAL SOLUTION (CUPS) PO PRN (06:07)
[2018-11-21 07:46] LABS: HEMATOCRIT 30.6 % (35.4-49); HEMOGLOBIN 10.7 GM/dL (11.7-16.9); MEAN CELL VOLUME 91.6 fl (80-96); MEAN PLT VOLUME 8.2 fl (7.5-11.1); PLATELET COUNT 68 K/MM3 (134-434); RBC 3.34 M/mm3 (4.00-5.60); RDW 13.6 % (11.9-15.9); WHITE BLOOD COUNT 4.4 K/mm3 (4.0-10.0)
[2018-11-21 07:56] LABS: BLOOD UREA NITROGEN 12.5 mg/dL (7-18); CALCIUM 7.4 mg/dL (8.5-10.1); CREATININE 0.7 mg/dL (0.55-1.3); POTASSIUM 4.2 mmol/L (3.5-5.1)
--- NOTE | 2018-11-21 09:33 | CONS ---
DATE OF CONSULTATION: DATE OF DICTATION: 11/21/2018 INFECTIOUS DISEASE CONSULTATION HISTORY OF PRESENT ILLNESS: The patient is a 57-year-old male evaluated for fever. History is limited as the patient is not cooperative. He was admitted to [facility] for detox from injectable heroin and cocaine. He developed fever, abdominal pain and acute urinary retention. The patient is awake but he is not cooperative with exam. He is lying in bed with a sheet over his head and not providing any further details. When he denies any pain. He did report some difficulty urinating and dysuria. Cultures were obtained and he was empirically treated with ceftriaxone. His course has been complicated by fever. PAST MEDICAL HISTORY: Positive for active injection drug use and hepatitis C. ALLERGIES: No known allergies. SOCIAL HISTORY: According to the chart, the patient is apparently homeless, an active drug user. DIAGNOSTIC STUDIES: Lab data: White count 5.7, hematocrit 34.4, platelets 70. Creatinine 0.8. Urinalysis with 51 white cells. Chest x-ray negative. Lipase 81. CAT scan of the abdomen and pelvis performed and is pending. Liver enzymes are normal. HIV test negative. PHYSICAL EXAMINATION: General: He is uncooperative with exam. Vital Signs: Temperature 100.8, Tmax 101.2, blood pressure 110/45, pulse 82 and regular, respirations 20 per minute. HEENT: Sclerae anicteric. Cardiac: Heart sounds S1, S2. No loud murmur. Lungs: Clear. Abdomen: Soft. No tenderness elicited. Extremities: Negative for edema. Positive blisters present on the feet bilaterally with poor hygiene. IMPRESSION: Fever unclear etiology. Concerned about possible endocarditis in light of injection drug use and fever, as well as possible urosepsis in light of reports of urinary retention. PLAN: Await sepsis workup. Empirical antibiotic coverage with ceftriaxone and vancomycin. Further recommendations pending sepsis workup. Thank you for the kind referral. SATISH AMAYA M.D. [id number]
[2018-11-21] MEDS: VANCOMYCIN 1 GRAM (PRE-DOCKED) 1,000 MG/250 ML BAG IVPB SCH ×2 (10:01→20:51)
[2018-11-21] MEDS: FERROUS SO4 300 MG/5 ML ORAL SOLN UNIT DOSE CUPS PO SCH (10:02)
--- NOTE | 2018-11-21 13:34 | PN ---
Teaching Attending Note Name of Resident: Julian Jenkins ATTENDING PHYSICIAN STATEMENT I saw and evaluated the patient. I reviewed the resident's note and discussed the case with the resident. I agree with the resident's findings and plan as documented with exceptions below. SUBJECTIVE: patient seen and examined. feels better, no urinary symptoms, no sore throat, dyspnea or concerns. OBJECTIVE: Vital Signs Period Temp Pulse Resp BP Sys/Hummel Pulse Ox Last 24 Hr 98.3 F-101.7 F 60-83 18-20 109-125/45-68 97 Intake & Output 11/18/18 11/19/18 11/20/18 11/21/18 23:59 23:59 23:59 23:59 Intake Total 1270 2150 Output Total 500 Balance 1270 1650 Weight 175 lb 178 lb General: lying in bed in no acute distress HEENT: PERRL, EOMI CVS:S1s2 regular Chest: CTAB, no rales or wheezing Abdomen:soft, NT throughout, ND, pos bowel sounds, no CVA or suprapubic tenderness Extremities: no edema Home Medications Medication Instructions Recorded Acetaminophen [Tylenol] 650 mg PO QID PRN 11/20/18 Bismuth Subsalicylate 524 mg PO PRN PRN 11/20/18 [Pepto-Bismol -] Diazepam [Valium] 10 mg PO QID PRN 11/20/18 Mag Hydrox/Al Hydrox/Simeth 30 ml PO Q6H 11/20/18 [Mylanta *Suspension*] Magnesium Citrate [Citroma -] 150 ml PO Q2D 11/20/18 Magnesium Hydrox 2400MG/30Ml [Milk 30 ml PO DAILY PRN 11/20/18 of Magnesia -] Melatonin 5 mg PO HS 11/20/18 Menthol/Phenol [Cepastat Lozenge -] 1 each MM Q4H 11/20/18 Methadone [Dolophine -] 5 mg PO AM 11/20/18 Methocarbamol [Robaxin -] 500 mg PO QID 11/20/18 Nicotine Patch [Nicoderm Patch -] 1 patch TD DAILY 11/20/18 Thiamine Mononitrate [Vitamin B-1] 100 mg PO HS 11/20/18 hydrOXYzine PAMOATE [Vistaril -] 25 mg PO QID 11/20/18 traZODone HCL [Desyrel -] 50 mg PO HS 11/20/18 Active Medications Acetaminophen (Tylenol Oral Solution -) 650 mg PO Q6H PRN PRN Reason: PAIN Last Admin: 11/21/18 06:07 Dose: 650 mg Ferrous Sulfate (Feosol) 300 mg PO DAILY [facility] Last Admin: 11/21/18 10:02 Dose: 300 mg Ceftriaxone Sodium 1 gm/ (Dextrose) 50 mls @ 200 mls/hr IVPB DAILY [facility]; Protocol Last Admin: 11/21/18 12:03 Dose: 200 mls/hr Sodium Chloride (Normal Saline -) 1,000 mls @ 125 mls/hr IV ASDIR [facility] Last Admin: 11/20/18 10:45 Dose: 125 mls/hr Vancomycin HCl (Vancomycin (Pre-Docked)) 1,000 mg in 250 mls @ 166.667 mls/hr IVPB Q12H [facility]; Protocol Last Admin: 11/21/18 10:01 Dose: 166.667 mls/hr Laboratory Results - last 24 hr 11/21/18 11/21/18 07:00 07:00 WBC 4.4 RBC 3.34 L Hgb 10.7 L Hct 30.6 L MCV 91.6 MCH 32.0 MCHC 35.0 RDW 13.6 Plt Count 68 L MPV 8.2 Sodium 136 Potassium 4.2 Chloride 105 Carbon Dioxide 27 Anion Gap 4 L BUN 12.5 Creatinine 0.7 Est GFR (CKD-EPI)AfAm 122.27 Est GFR (CKD-EPI)NonAf 105.50 Random Glucose 103 Calcium 7.4 L Microbiology 11/19/18 23:49 Throat Throat Culture - Preliminary Pending Organism 11/20/18 03:03 Urine - Urine Clean Catch Urine Culture - Final Staphylococcus Latex Coag Pos 11/19/18 00:20 Blood - Peripheral Venous Blood Culture - Preliminary Presumptive Mrsa (Pbp2a Pos) 11/19/18 00:20 Blood - Peripheral Venous Blood Culture - Preliminary Presumptive Mrsa (Pbp2a Pos) ASSESSMENT AND PLAN: 57 yom with PMHx of tobacco dependence, IVDU with cocaine/heroine (1 gm daily), chronic thrombocytopenia, hepatitis C s/p treatment 4 years ago, hepatic cirrhosis/splenomegaly sent from [facility] with fevers and urinary symptoms. -suspected MRSA bacteremia, r/o endocarditis, less likely pharyngitis, unlikely urinary source -Sepsis -Cocaine/heroine IVDU -Tobacco dependence -Thrombocytopenia, from hepatic cirrhosis/Splenomegaly -Hepatitis C s/p treatment Plan: Blood cx with presumed MRSA. Given h/o active IVDU, high clinical suspicion for Infective endocarditis. Check 2D echo Urine and throat cultures reviewed. ID input noted Emperic Ceftriaxone/vancomycin day 2. CT A/P neg for active concerns. IVF Needs outpatient cirrhosis/HCC screening with GI. DVTTPx SCDs given thrombocytopenia Dispo per [facility] notes, patient finished methadone detox. Dispo planning pending clinical course. Discussed with patient and nursing.
--- NOTE | 2018-11-21 14:13 | ECHO ---
Name: WILLIAM ARREGUIN Exam:Adult Echocardiogram Study Date: 11/21/2018 11:07 AM Age: 57 yrs Reason For Study: r/o veg,infective sbe Height: 73 in Weight: 178 lb BSA: 2.0 m2 MMode/2D Measurements & Calculations IVSd: 1.2 cm Ao root diam: 3.8 cm LVIDd: 5.1 cm LA dimension: 3.7 cm LVIDs: 2.5 cm ACS: 2.3 cm LVPWd: 0.82 cm IVSs: 1.4 cm LVPWs: 1.5 cm EDV(Teich): 124.9 ml ESV(Teich): 21.7 ml Doppler Measurements & Calculations MV E max wale: 72.8 cm/sec Ao V2 max: 103.7 cm/sec MV A max wale: 40.5 cm/sec Ao max P.3 mmHg MV E/A: 1.8 Ao V2 mean: 73.6 cm/sec Ao mean P.4 mmHg Ao V2 VTI: 25.1 cm MR max wale: 420.8 cm/sec TR max wale: 208.1 cm/sec MR max P.9 mmHg TR max P.3 mmHg PI end-d wale: 77.4 cm/sec Med Peak E' Wale: 9.1 cm/sec Med E/e': 8.0 Lat Peak E' Wale: 15.0 cm/sec Lat E/e': 4.8 Procedure A two-dimensional transthoracic echocardiogram with color flow and Doppler was performed. The patient was in normal sinus rhythm during the exam. Left Ventricle The left ventricular size, thickness and function are normal. Ejection Fraction = 60%. Diastolic dysf unction, Grade II (pseudonormalization pattern). Right Ventricle The right ventricle is normal in size and function. Atria Normal left and right atrial size and function. Mitral Valve The mitral valve is grossly normal. There is trace mitral regurgitation. Tricuspid Valve The tricuspid valve is not well visualized, but is grossly normal. There is trace tricuspid regurgita tion. There was insufficient TR detected to calculate RV systolic pressure. Aortic Valve The aortic valve is normal in structure and function. No hemodynamically significant valvular aortic stenosis. Pulmonic Valve The pulmonic valve is not well visualized. Great Vessels Mild aortic root dilatation. Pericardium/Pleura There is no pericardial effusion. Interpretation Summary The left ventricular size, thickness and function are normal The right ventricle is normal in size and function. Normal left and right atrial size and function. There is trace mitral regurgitation. There is trace tricuspid regurgitation. No hemodynamically significant valvular aortic stenosis. Mild aortic root dilatation. There was insufficient TR detected to calculate RV systolic pressure. MD Jose Pabon 11/21/2018 02:13 PM
--- NOTE | 2018-11-21 14:33 | PN ---
Progress Note (short form) - Note Progress Note: Podiatry Consultation: 57 year old male, history of IVDU and polysubstance abuse, presented to hospital for admission with fever/chills and likely UTI. The patient reports subjective fever/chills. The patient states that he has been living on the [address] without shoegear, which caused blistering to the bottom of the feet. Currently afebrile. PMHx: thrombocytopenia with unknown cause, IVDU of cocaine and heroin, recent treatment for Hepatitis C. Meds: noted ALL: NKMA DONAVAN: Pedal pulses palpable 2/4, TG wnl, CFT brisk to all toes. There is bilateral plantar forefoot blistering, superficial with dermal involvement, no purulent drainage, no fluctuance, no probing to bone, no streaking cellulitis, no signs of active infection. Minimal tenderness to palpation. No ischemic changes to the foot. Imp: 57 year old male, history of polysubstance use and IVDU, with bilateral foot serous blisters 1. No acute podiatric surgical intervention. 2. Discussed with patient appropriate shoegear. I discussed with him that use of well-fitting shoegear should prevent blistering in the future. We also discussed appropriate foot hygiene. 3. Can use topical emollient (i.e. ammonium lactate) 4. Can f/u as outpatient. Thank you for the courtesy of this consultation. Winston Rollins DPM
--- NOTE | 2018-11-21 15:36 | PN ---
Physical Exam: SUBJECTIVE: Patient seen and examined at bedside. Today, pt pulled his IV stating he had no clothes and wanted to leave the hospital AMA. Pt was AAOx3. After long discussion with pt about risks of leaving AMA, he elected to stay. OBJECTIVE: Vital Signs Period Temp Pulse Resp BP Sys/Hummel Pulse Ox Last 24 Hr 98.3 F-101.7 F 60-83 18-20 109-125/47-68 97 Gen: comfortable appearing, AAOx3, still somewhat groggy HEENT: NCAT, EOMI Neck: supple, no jvd Cardio: rrr, normal s1s2, no mrg Pulm: CTA b/l Abd: supple, no jvd, full bladder Ext: no edema, 2+ pulses, foot blisters Laboratory Results - last 24 hr 11/21/18 11/21/18 07:00 07:00 WBC 4.4 RBC 3.34 L Hgb 10.7 L Hct 30.6 L MCV 91.6 MCH 32.0 MCHC 35.0 RDW 13.6 Plt Count 68 L MPV 8.2 Sodium 136 Potassium 4.2 Chloride 105 Carbon Dioxide 27 Anion Gap 4 L BUN 12.5 Creatinine 0.7 Est GFR (CKD-EPI)AfAm 122.27 Est GFR (CKD-EPI)NonAf 105.50 Random Glucose 103 Calcium 7.4 L Active Medications Generic Name Dose Route Start Last Admin Trade Name Freq PRN Reason Stop Dose Admin Acetaminophen 650 mg 11/20/18 13:37 11/21/18 06:07 Tylenol Oral Solution - PO 650 mg Q6H PRN Administration PAIN Ferrous Sulfate 300 mg 11/20/18 11:00 11/21/18 10:02 Feosol PO 300 mg DAILY [facility]N Administration Ceftriaxone Sodium 1 gm/ 50 mls @ 200 mls/hr 11/21/18 01:40 11/21/18 12:03 Dextrose IVPB 200 mls/hr DAILY [facility] Administration Protocol Vancomycin HCl 1,000 mg in 250 mls @ 166.667 mls/hr 11/20/18 19:30 11/21/18 10:01 Vancomycin (Pre-Docked) IVPB 166.667 mls/hr Q12H K[facility]N Administration Protocol Sodium Chloride 1,000 mls @ 100 mls/hr 11/21/18 13:35 Normal Saline - IV ASDIR KAYLYN ASSESSMENT/PLAN: 57 year old male with a past medical history of thrombocytopenia with unknown cause, IVDU of cocaine and heroin, recent treatment for Hepatitis C admitted for treatment of likely UTI. #r/o Infective endocarditis -BCx prelim pos for MRSA -IVDA -febrile overnight -ID on board -Ceftriaxone/vancomycin #UTI - likely in setting of poor hygiene, no recent instrumentation or catheter insertion - UA with elevated pH, possible urea producing organism - UCx prelim pos for staph, , Throat Cx prelim pos - continue ceftriaxone daily - spiral CT neg for stones/obstruction - maintain adequate hydration with NS at 125. Pt has poor PO intake - ID consulted, also in setting of recent Hep C treatment and questionable TB process due to night sweats and risk factors - HIV neg #Opiate Abuse - completed detox, scheduled to begin rehab - continue to monitor for signs of withdrawal - Dr. Higgins consulted. F/u recs - falls, aspiration, seizure precautions #Microcytic Anemia -Hb above limit of anemia - unclear history - iron deficiency #Hypoalbuniemia - likely in setting of poor oral intake - dietary consult - encourage PO intake #Thrombocytopenia - unclear history - CT pending #Extensive Foot Blistering - in setting of poor foot care and lack of shoes - Dr. Blum consulted - social work consulted to help find shoes for patient #FEN - NS at 125cc/hr - continue to monitor electrolytes and replete as necessary - regular diet #Prophylaxis - Lovenox 40mg subq daily #Code - full code Visit type - Emergency Visit Emergency Visit: No - New Patient This patient is new to me today: No - Critical Care Critical Care patient: No ATTENDING PHYSICIAN STATEMENT I saw and evaluated the patient. I reviewed the resident's note and discussed the case with the resident. I agree with the resident's findings and plan as documented. SUBJECTIVE: OBJECTIVE: ASSESSMENT AND PLAN:
[2018-11-21] MEDS: SODIUM CHLORIDE 1,000 ML IV SCH (20:52)
[2018-11-21] MEDS ORDERED: MELATONIN 5 MG TABLETS PO ONE (22:26)
[2018-11-22] MEDS ORDERED: DEXTROSE 5%-WATER - 50 ML IVPB ONE (08:02)
[2018-11-22] MEDS ORDERED: cefTRIAXone SODIUM 1 GM VIAL ONE (08:02)
[2018-11-22] MEDS: VANCOMYCIN 1 GRAM (PRE-DOCKED) 1,000 MG/250 ML BAG IVPB SCH (08:31)
[2018-11-22] MEDS: FERROUS SO4 300 MG/5 ML ORAL SOLN UNIT DOSE CUPS PO SCH (10:00)
[2018-11-22] MEDS: CEFTRIAXONE 1 GM in DEXTROSE 5%-WATER - 50 ML IVPB SCH ×2 (10:00→11:04)
--- NOTE | 2018-11-22 10:49 | PN ---
Progress Note, Physician History of Present Illness: AWAKE, ALERT NO COMPLAINTS AFEBRILE ECHO NO VEGETATIONS - Current Medication List Current Medications: Active Medications Acetaminophen (Tylenol Oral Solution -) 650 mg PO Q6H PRN PRN Reason: PAIN Last Admin: 11/21/18 06:07 Dose: 650 mg Ferrous Sulfate (Feosol) 300 mg PO DAILY [facility] Last Admin: 11/22/18 10:00 Dose: 300 mg Vancomycin HCl (Vancomycin (Pre-Docked)) 1,000 mg in 250 mls @ 166.667 mls/hr IVPB Q12H [facility]; Protocol Last Admin: 11/22/18 08:31 Dose: 166.667 mls/hr Sodium Chloride (Normal Saline -) 1,000 mls @ 100 mls/hr IV ASDIR KAYLYN Last Admin: 11/21/18 20:52 Dose: 100 mls/hr - Objective Vital Signs: Vital Signs Temperature 98.4 F 11/22/18 05:00 Pulse Rate 66 11/22/18 05:00 Respiratory Rate 20 11/21/18 23:00 Blood Pressure 120/68 11/22/18 05:00 O2 Sat by Pulse Oximetry (%) 97 11/21/18 21:00 Constitutional: Yes: No Distress Eyes: Yes: Conjunctiva Clear Cardiovascular: Yes: Regular Rate and Rhythm, S1, S2 Respiratory: Yes: CTA Bilaterally Labs: CBC, BMP 11/21/18 07:00 11/21/18 07:00 Assessment/Plan MRSA BACTEREMIA, PROBABLE ENDOCARDITIS LIKELY SECONDARY TO ACTIVE IDU CONTINUE VANCOMYCIN VANCO LEVEL, REPEAT BC ORDERED WILL NEED 4W COURSE IV ANTIBIOTICS SNF PLACEMENT FOR ANTIBIOTIC TX
[2018-11-22 11:14] VITALS: BP 117/58; PULSE 63; TEMP 98
[2018-11-22] MEDS ORDERED: MULTIVITAMINS (DAILY MVI) TABLET (FP) PO SCH (14:00)
[2018-11-22] MEDS: SODIUM CHLORIDE 1,000 ML IV SCH (15:03)
--- NOTE | 2018-11-22 19:50 | PN ---
Teaching Attending Note Name of Resident: Julian Jenkins ATTENDING PHYSICIAN STATEMENT I saw and evaluated the patient. I reviewed the resident's note and discussed the case with the resident. I agree with the resident's findings and plan as documented. SUBJECTIVE: OBJECTIVE: ASSESSMENT AND PLAN:
--- NOTE | 2018-11-22 21:31 | DS ---
Physical Exam: SUBJECTIVE: Patient seen and examined at bedside. No acute events. OBJECTIVE: Vital Signs Period Temp Pulse Resp BP Sys/Hummel Pulse Ox Last 24 Hr 98 F-98.8 F 63-79 20-20 117-132/58-71 97 PHYSICAL EXAM Gen: comfortable appearing, AAOx3, more awake HEENT: NCAT, EOMI Neck: supple, no jvd Cardio: rrr, normal s1s2, no mrg Pulm: CTA b/l Abd: supple, no jvd, full bladder Ext: no edema, 2+ pulses, foot blisters LABS HOSPITAL COURSE: Date of Admission:11/20/18 Date of Discharge: 11/22/18 Pt is a 57 yo M who presented to ED sent from [facility] for fever and malaise. Pt was found to have MRSA bacteremia and was being worked up for possible bacterial endocarditis, unremarkable echo notwithstanding. Pt was receiving ABx and improved dramatically. Of note, pt previously told nurse he wanted to leave AMA, however, after lengthy discussion with physician regarding the seriousness of his illness, he elected to stay. Today, however, the patient again pulled his IV and elected to leave AMA.Pt was well aware of the risks incurred. Minutes to complete discharge: 20 Discharge Summary Reason For Visit: URINARY TRACT INFECTION/FEVER WITH CHILLS Condition: Guarded - Instructions Diet, Activity, Other Instructions: GI repeat MRI liver in 3 months Disposition: ELOPED - Home Medications Comprehensive Discharge Medication List: Ambulatory Orders Acetaminophen [Tylenol] 650 mg PO QID PRN 11/20/18 Bismuth Subsalicylate [Pepto-Bismol -] 524 mg PO PRN PRN 11/20/18 Diazepam [Valium] 10 mg PO QID PRN 11/20/18 Mag Hydrox/Al Hydrox/Simeth [Mylanta *Suspension*] 30 ml PO Q6H 11/20/18 Magnesium Citrate [Citroma -] 150 ml PO Q2D 11/20/18 Magnesium Hydrox 2400MG/30Ml [Milk of Magnesia -] 30 ml PO DAILY PRN 11/20/18 Melatonin 5 mg PO HS 11/20/18 Menthol/Phenol [Cepastat Lozenge -] 1 each MM Q4H 11/20/18 Methadone [Dolophine -] 5 mg PO AM 11/20/18 Methocarbamol [Robaxin -] 500 mg PO QID 11/20/18 Nicotine Patch [Nicoderm Patch -] 1 patch TD DAILY 11/20/18 Thiamine Mononitrate [Vitamin B-1] 100 mg PO HS 11/20/18 hydrOXYzine PAMOATE [Vistaril -] 25 mg PO QID 11/20/18 traZODone HCL [Desyrel -] 50 mg PO HS 11/20/18 This patient is new to me today: No Emergency Visit: No Critical Care patient: No - Discharge Referral Referred to [facility] No ATTENDING PHYSICIAN STATEMENT I saw and evaluated the patient. I reviewed the resident's note and discussed the case with the resident. I agree with the resident's findings and plan as documented. SUBJECTIVE: OBJECTIVE: ASSESSMENT AND PLAN:
== END 2018-11-22 17:20 | disposition left against medical advice (07) | DRG 193 ==
LOC: JER 22:06 → JERBED 11-20 01:47 → J6S 11-20 04:57
PROVIDERS: ADMIT Internal Medicine; ATTEND Internal Medicine
DX: I33.0 Acute and subacute infective endocarditis (principal); K59.00 Constipation, unspecified; F17.210 Nicotine dependence, cigarettes, uncomplicated; D64.9 Anemia, unspecified; B95.62 Methicillin resistant Staphylococcus aureus infection as the cause of diseases classified elsewhere; S90.821A Blister (nonthermal), right foot, initial encounter; S90.822A Blister (nonthermal), left foot, initial encounter; N39.0 Urinary tract infection, site not specified; K74.60 Unspecified cirrhosis of liver; F11.20 Opioid dependence, uncomplicated; E88.09 Other disorders of plasma-protein metabolism, not elsewhere classified; E46 Unspecified protein-calorie malnutrition; R16.2 Hepatomegaly with splenomegaly, not elsewhere classified; D69.6 Thrombocytopenia, unspecified; R50.9 Fever, unspecified; F14.20 Cocaine dependence, uncomplicated; X58.XXXA Exposure to other specified factors, initial encounter; Y93.9 Activity, unspecified; Y92.89 Other specified places as the place of occurrence of the external cause; Y99.9 Unspecified external cause status
CPT/HCPCS: 36415; 71046-TC-FY; 74176-TC; 80048; 80053; 80307; 81003; 82550; 82728; 83036; 83540; 83550; 83605; 83690; 83735; 84484; 85025; 85027; 85044; 86803; 87040; 87070; 87077; 87086; 87186; 87389; 87880; 93005; 93010; 93306-TC; 99284-25; J7030